=== PATIENT | male | born 1945 | race Caucasian/White ===

== ENCOUNTER 2017-01-21 15:23 | Emergency (ER) | payer MEDICARE ==
--- NOTE | 2017-01-21 17:30 | ER Document Report ---
ED Medical Screen (RME) - General Chief Complaint: Testicular Pain Stated Complaint: RASH/TESTICLE PAIN Time Seen by Provider: 01/21/17 17:23 Notes: This is a 71-year-old male who presents for perineal pain. States that he has pain at the base of his penis and around to the right side of his scrotum and then to his rectum. He also has left hip discomfort. The symptoms have been going on for several days. No dysuria. No fevers or chills. He also is concerned about a recurrent rash that he has had off and on for several years which is pruritic and located on his right flank and upper back. I have greeted and performed a rapid initial assessment of this patient. A comprehensive ED assessment and evaluation of the patient, analysis of test results and completion of the medical decision making process will be conducted by additional ED providers. TRAVEL OUTSIDE OF THE [place] IN LAST 30 DAYS: No - Related Data Allergies/Adverse Reactions: amoxicillin Allergy (Verified 01/21/17 16:23) Past Medical History Renal/ Medical History: Denies: Hx Peritoneal Dialysis Physical Exam - Vital signs Vitals: Temp Pulse Resp BP Pulse Ox 97.6 F 70 16 156/79 H 98 01/21/17 15:33 01/21/17 15:33 01/21/17 15:33 01/21/17 15:33 01/21/17 15:33 Course - Vital Signs Vital signs: Temp Pulse Resp BP Pulse Ox 97.6 F 70 16 156/79 H 98 01/21/17 15:33 01/21/17 15:33 01/21/17 15:33 01/21/17 15:33 01/21/17 15:33 - Laboratory Result Diagrams: 01/21/17 18:08 01/21/17 18:08 Laboratory results interpreted by me: 01/21/17 01/21/17 18:08 18:08 Hgb 13.0 L Total Protein 8.4 H
[2017-01-21 18:32] LABS: APPEARANCE,URINE CLEAR; BILIRUBIN,URINE NEGATIVE (NEGATIVE); GLUCOSE, URINE NEGATIVE (NEGATIVE); KETONES,URINE NEGATIVE (NEGATIVE); LEUKOCYTE ESTERASE,URINE NEGATIVE (NEGATIVE); NITRITE,URINE NEGATIVE (NEGATIVE); PROTEIN,URINE NEGATIVE (NEGATIVE); URINE SPECIFIC GRAVITY 1.006; UROBILINOGEN,URINE NEGATIVE mg/dL (<2.0)
[2017-01-21 18:36] LABS: ABSOLUTE EOSINOPHILS # (AUTO) 0.3 10^3/uL (0.0-0.6); ABSOLUTE MONOCYTES (AUTO) 0.4 10^3/uL (0.1-1.4); ABSOLUTE NEUT (AUTO) 3.3 10^3/uL (1.7-8.2); BASOPHILS % (AUTO) 0.7 % (0-2); EOSINOPHILS % (AUTO) 5.2 % (0-6); HEMATOCRIT 39.9 % (37.9-51.0); HGB HCT DIFFERENCE -0.9; LYMPHOCYTES % (AUTO) 19.9 % (13-45); MEAN CORPUSCULAR HEMOGLOBIN 27.7 pg (27.0-33.4); MEAN CORPUSCULAR HGB CONC 32.6 g/dL (32.0-36.0); MEAN CORPUSCULAR VOLUME 85 fl (80-97); MONOCYTES % (AUTO) 8.5 % (3-13); RED BLOOD COUNT 4.69 10^6/uL (4.35-5.55); RED CELL DISTRIBUTION WIDTH 13.5 % (11.5-14.0); SEGMENTED NEUTROPHILS % (AUTO) 65.7 % (42-78)
[2017-01-21 18:56] LABS: ALANINE AMINOTRANSFERASE 34 U/L (21-72); ALBUMIN 4.3 g/dL (3.5-5.0); ALKALINE PHOSPHATASE 68 U/L (38-126); ANION GAP 12 (5-19); ASPARTATE AMINO TRANSFERASE 33 U/L (17-59); BILIRUBIN,DIRECT 0.4 mg/dL (0.0-0.4); BILIRUBIN,TOTAL 0.7 mg/dL (0.2-1.3); BLOOD UREA NITROGEN 17 mg/dL (7-20); CALCIUM 9.7 mg/dL (8.4-10.2); CARBON DIOXIDE 26 mmol/L (22-30); CHLORIDE 105 mmol/L (98-107); GLUCOSE 99 mg/dL (75-110); POTASSIUM 4.5 mmol/L (3.6-5.0); SODIUM 143.4 mmol/L (137-145); TOTAL PROTEIN 8.4 g/dL (6.3-8.2)
--- NOTE | 2017-01-21 19:56 | RADIOLOGY REPORT (SQ) ---
EXAM DESCRIPTION: U/S SCROTUM W/DOPPLER COMPLETED DATE/TIME: 01/21/2017 7:48 pm REASON FOR STUDY: right testicular pain COMPARISON: None. TECHNIQUE: Static and realtime araya scale imaging of the scrotum and testes. Selected color Doppler and spectral images recorded to document blood flow. LIMITATIONS: None. FINDINGS: RIGHT: TESTICLE: Normal size. Normal echotexture. Normal blood flow. No mass. EPIDIDYMIS: Normal. HYDROCELE OR VARICOCELE: Hydrocele is identified with internal echogenicity suggesting internal debri s. HERNIA OR EXTRA-TESTICULAR MASS: No. OTHER: No other significant finding. LEFT: TESTICLE: Normal size. Normal echotexture. Normal blood flow. No mass. EPIDIDYMIS: Normal. HYDROCELE OR VARICOCELE: Hydrocele is identified with internal echogenicity suggesting internal debri s. HERNIA OR EXTRA-TESTICULAR MASS: No. OTHER: No other significant finding. IMPRESSION: Bilateral hydroceles as noted above. NO EVIDENCE OF TESTICULAR MASS OR TORSION. TECHNICAL DOCUMENTATION: JOB ID: [id number] [employer]- All Rights Reserved
[2017-01-21] MEDS ORDERED: LEVOFLOXACIN 750 MG TABLET PO ONE (21:46)
--- NOTE | 2017-01-21 21:47 | ER Document Report ---
ED General - General Chief Complaint: Testicular Pain Stated Complaint: RASH/TESTICLE PAIN Time Seen by Provider: 01/21/17 17:23 Notes: Patient is a 71-year-old male with past medical history of prostatic hypertrophy and hypertension who presents with 3 days of progressively worsening testicular pain. Describes as a dull, aching, throbbing pain to the bilateral testicles. Nothing improves or worsens his pain. He denies any history of similar symptoms in the past. He has not seen his primary care doctor regarding today's concerns. He denies any associated dysuria, discharge , vomiting or focal abdominal pain. Notes that the pain does sometimes radiate from his testicles into his rectum. TRAVEL OUTSIDE OF THE [place] IN LAST 30 DAYS: No - Related Data Allergies/Adverse Reactions: amoxicillin Allergy (Verified 01/21/17 16:23) Past Medical History - General Information source: Patient - Social History Smoking Status: Never Smoker Frequency of alcohol use: None Drug Abuse: None Lives with: Spouse/Significant other Family History: Reviewed & Not Pertinent Patient has suicidal ideation: No Patient has homicidal ideation: No Renal/ Medical History: Denies: Hx Peritoneal Dialysis Review of Systems - Review of Systems Notes: Constitutional: Negative for fever. HENT: Negative for sore throat. Eyes: Negative for visual changes. Cardiovascular: Negative for chest pain. Respiratory: Negative for shortness of breath. Gastrointestinal: Negative for abdominal pain, vomiting or diarrhea. Genitourinary: Positive for testicular pain Musculoskeletal: Negative for back pain. Skin: Negative for rash. Neurological: Negative for headaches, weakness or numbness. 10 point ROS negative except as marked above and in HPI. Physical Exam - Vital signs Vitals: Temp Pulse Resp BP Pulse Ox 97.6 F 70 16 156/79 H 98 01/21/17 15:33 01/21/17 15:33 01/21/17 15:33 01/21/17 15:33 01/21/17 15:33 Interpretation: Hypertensive Notes: PHYSICAL EXAMINATION: GENERAL: Well-appearing, well-nourished and in no acute distress. HEAD: Atraumatic, normocephalic. EYES: Pupils equal round and reactive to light, extraocular movements intact, sclera anicteric, conjunctiva are normal. ENT: nares patent, oropharynx clear without exudates. Moist mucous membranes. NECK: Normal range of motion, supple without lymphadenopathy LUNGS: Breath sounds clear to auscultation bilaterally and equal. No wheezes rales or rhonchi. HEART: Regular rate and rhythm without murmurs ABDOMEN: Soft, nontender, normoactive bowel sounds. No guarding, no rebound. No masses appreciated. : Mild edema to the bilateral testicles. Positive cremasteric reflex bilaterally. No focal epididymal tenderness. EXTREMITIES: Normal range of motion, no pitting or edema. No cyanosis. NEUROLOGICAL: No focal neurological deficits. Moves all extremities spontaneously and on command. PSYCH: Normal mood, normal affect. SKIN: Warm, Dry, normal turgor, no rashes or lesions noted. Course - Re-evaluation Re-evalutation: 01/21/17 21:42 Patient presents with 4 days of progressively worsening bilateral testicular pain. On exam he has visible bilateral hydroceles and this is confirmed on ultrasound. No evidence of testicular torsion on exam or ultrasound. Patient has had multiple recent straining bowel movements which may account for his acutely dilated hydroceles. I have encouraged him to continue taking his chronic pain management medications at home for this pain and to closely follow with urology for definitive management should his pain not improve. - Vital Signs Vital signs: Temp Pulse Resp BP Pulse Ox 97.8 F 65 20 148/80 H 100 01/21/17 21:56 01/21/17 21:56 01/21/17 21:56 01/21/17 21:56 01/21/17 21:56 - Laboratory Result Diagrams: 01/21/17 18:08 01/21/17 18:08 Laboratory results interpreted by me: 01/21/17 01/21/17 18:08 18:08 Hgb 13.0 L Total Protein 8.4 H - Diagnostic Test Radiology reviewed: Reports reviewed Discharge - Discharge Clinical Impression: Bilateral hydrocele Condition: Good Disposition: HOME, SELF-CARE Additional Instructions: Your pain is likely related to fluid that surrounds both of your testicles called a hydrocele. Please follow-up with urology for definitive management of this. You are also being empirically trialed on a course of antibiotics to treat a possible testicular infection. Please take as directed until finished. Return if you have worsening of your pain clinic develop a fever greater than 101F, you have persistent vomiting, or any other symptoms that are worrisome to you. Prescriptions: Levofloxacin 750 mg PO DAILY #10 tablet Referrals: ANA VALADEZ MD [ACTIVE STAFF] - Follow up as needed
[2017-01-21 21:58] VITALS: BP 148/80
== END 2017-01-21 21:56 | disposition home or self-care (01) ==
LOC: ER 15:23
DX: N43.3 Hydrocele, unspecified (principal); I10 Essential (primary) hypertension; G89.29 Other chronic pain; Z79.899 Other long term (current) drug therapy; Z88.0 Allergy status to penicillin
CPT/HCPCS: 99284; 36415; 85025; 80053; 81001; 76870; 93976; A9270

== ENCOUNTER 2017-08-14 10:52 | Emergency (ER) | payer MEDICARE ==
[2017-08-14] MEDS ORDERED: BENZONATATE 100 MG CAPSULE PO ONE (11:30)
[2017-08-14] MEDS ORDERED: ASPIRIN 81 MG TABLET, CHEWABLE PO ONE (11:30)
--- NOTE | 2017-08-14 11:43 | ER Document Report ---
ED Medical Screen (RME) - General Mode of Arrival: Ambulatory Information source: Patient TRAVEL OUTSIDE OF THE [place] IN LAST 30 DAYS: No <LG SU - Last Filed: 08/14/17 12:07> <JOEL TAYLOR - Last Filed: 08/14/17 15:19> - General Chief Complaint: Chest Pain Stated Complaint: LEFT SIDE PAIN Time Seen by Provider: 08/14/17 11:24 Notes: Patient is a 71 year old male with a history of arthritis presents to the emergency department complaining of left chest pain. Patient states that he had a respiratory infection 2 weeks ago and was given treatment but it did not help his symptoms so he was seen again 5 days ago and was given steroids. Patient states his respiratory symptoms are still persistent. Patient also complains of SOB. Patient denies any fevers. I have greeted and performed a rapid initial assessment of this patient. A comprehensive ED assessment and evaluation of the patient, analysis of test results and completion of the medical decision making process will be conducted by additional ED providers. (LG SU) - Related Data Allergies/Adverse Reactions: amoxicillin Allergy (Verified 08/14/17 10:54) Past Medical History - Past Medical History Cardiac Medical History: Reports: Hx Hypertension Renal/ Medical History: Denies: Hx Peritoneal Dialysis - Immunizations Hx Diphtheria, Pertussis, Tetanus Vaccination: Yes <LG SU - Last Filed: 08/14/17 12:07> Physical Exam <LG SU - Last Filed: 08/14/17 12:07> <JOEL TAYLOR - Last Filed: 08/14/17 15:19> - Vital signs Vitals: Temp Pulse Resp BP Pulse Ox 97.8 F 63 18 160/80 H 98 08/14/17 10:57 08/14/17 10:57 08/14/17 10:57 08/14/17 10:57 08/14/17 10:57 - Notes Notes: GENERAL: Alert, interacts well. No acute distress. LUNGS: Tender to palpation to the mid axillary line, left side approximately rib 6. Dry cough, expiratory wheezing with cough. No rales or rhonchi. Shortness of breath when sitting. No respiratory distress. HEART: Regular rate and rhythm. No murmurs, gallops, or rubs. ABDOMEN: Soft, non-tender. Non-distended. Bowel sounds present in all 4 quadrants. (LG SU) Course - Laboratory Result Diagrams: 08/14/17 12:11 08/14/17 12:11 <JOEL TAYLOR - Last Filed: 08/14/17 15:19> - Vital Signs Vital signs: Temp Pulse Resp BP Pulse Ox 97.8 F 63 14 148/94 H 95 08/14/17 10:57 08/14/17 10:57 08/14/17 13:46 08/14/17 13:46 08/14/17 13:46 - Laboratory Laboratory results interpreted by me: 08/14/17 08/14/17 08/14/17 12:11 12:11 12:11 RBC 3.95 L Hgb 11.2 L Hct 33.2 L Seg Neutrophils % 83.2 H Lymphocytes % 11.1 L D-Dimer 3.46 H BUN 26 H Creatine Kinase 37 L Total Protein 9.1 H Scribe Documentation - Scribe Written by Reese:: Reese Carrington, 08/14/2017 12:09 acting as scribe for :: Marlyn <LG SU - Last Filed: 08/14/17 12:07>
--- NOTE | 2017-08-14 11:55 | RADIOLOGY REPORT (SQ) ---
EXAM DESCRIPTION: CHEST PA/LAT COMPLETED DATE/TIME: 08/14/2017 11:44 am REASON FOR STUDY: coughed until sudden pain, r/o PTX vs rib fz COMPARISON: None. EXAM PARAMETERS: NUMBER OF VIEWS: two views TECHNIQUE: Digital Frontal and Lateral radiographic views of the chest acquired. RADIATION DOSE: NA LIMITATIONS: none FINDINGS: LUNGS AND PLEURA: No opacities, masses or pneumothorax. No pleural effusion. MEDIASTINUM AND HILAR STRUCTURES: No masses or contour abnormalities. HEART AND VASCULAR STRUCTURES: Heart normal size. No evidence for failure. BONES: Question fracture left lateral 4th rib. HARDWARE: None in the chest. OTHER: No other significant finding. IMPRESSION: Question left lateral 4th rib fracture. No focal infiltrates. No pleural effusion or pneumothorax TECHNICAL DOCUMENTATION: JOB ID: [id number] [employer]- All Rights Reserved
[2017-08-14 12:35] LABS: ABSOLUTE LYMPHOCYTES (AUTO) 0.9 10^3/uL (0.5-4.7); ABSOLUTE MONOCYTES (AUTO) 0.4 10^3/uL (0.1-1.4); ABSOLUTE NEUT (AUTO) 6.8 10^3/uL (1.7-8.2); BASOPHILS % (AUTO) 0.4 % (0-2); HEMATOCRIT 33.2 % (37.9-51.0); HEMOGLOBIN 11.2 g/dL (13.5-17.0); HGB HCT DIFFERENCE 0.4; LYMPHOCYTES % (AUTO) 11.1 % (13-45); MEAN CORPUSCULAR HEMOGLOBIN 28.3 pg (27.0-33.4); MEAN CORPUSCULAR HGB CONC 33.7 g/dL (32.0-36.0); MEAN CORPUSCULAR VOLUME 84 fl (80-97); MONOCYTES % (AUTO) 5.3 % (3-13); RED BLOOD COUNT 3.95 10^6/uL (4.35-5.55); RED CELL DISTRIBUTION WIDTH 13.8 % (11.5-14.0); SEGMENTED NEUTROPHILS % (AUTO) 83.2 % (42-78); WHITE BLOOD COUNT 8.2 10^3/uL (4.0-10.5)
[2017-08-14 12:56] LABS: ALANINE AMINOTRANSFERASE 41 U/L (21-72); ALKALINE PHOSPHATASE 92 U/L (38-126); ANION GAP 14 (5-19); ASPARTATE AMINO TRANSFERASE 43 U/L (17-59); BILIRUBIN,DIRECT 0.3 mg/dL (0.0-0.4); BILIRUBIN,TOTAL 0.3 mg/dL (0.2-1.3); BLOOD UREA NITROGEN 26 mg/dL (7-20); CALCIUM 10.1 mg/dL (8.4-10.2); CARBON DIOXIDE 22 mmol/L (22-30); CHLORIDE 105 mmol/L (98-107); CREATINE KINASE 37 U/L (55-170); CREATININE RESULT 1.13 mg/dL (0.52-1.25); GLUCOSE 106 mg/dL (75-110); POTASSIUM 4.1 mmol/L (3.6-5.0); SODIUM 141.2 mmol/L (137-145); TOTAL PROTEIN 9.1 g/dL (6.3-8.2)
--- NOTE | 2017-08-14 12:56 | EKG REPORT ---
SEVERITY:- BORDERLINE ECG - SINUS RHYTHM EARLY TRANSITION : Confirmed by: Refugio Pugh MD 14-Aug-2017 12:55:27
[2017-08-14 13:07] LABS: CREATINE KINASE MB 0.73 ng/mL (<4.55); TROPONIN I 0.026 ng/mL
[2017-08-14] MEDS ORDERED: MAGNESIUM SULFATE/D5W 1 GM/100 ML RTUPB IV ONE (13:28)
[2017-08-14] MEDS ORDERED: IPRATROPIUM/ALBUTEROL 0.5-2.5 MG/3 ML AMPUL NEB ONE (13:28)
[2017-08-14] MEDS ORDERED: NORMAL SALINE 1000 ML 1,000 ML IV ONE (13:39)
--- NOTE | 2017-08-14 14:57 | RADIOLOGY REPORT (SQ) ---
EXAM DESCRIPTION: CTA CHEST COMPLETED DATE/TIME: 08/14/2017 2:21 pm REASON FOR STUDY: elevated ddimer sob eval rib fx COMPARISON: None. TECHNIQUE: CT scan of the chest performed using helical scanning technique with dynamic intravenous contrast injection. Images reviewed with lung, soft tissue and bone windows. Reconstructed coronal and sagittal MPR images reviewed. Additional 3 dimensional post-processing performed to develop Maximal Intensity Projection images (GA P). All images stored on PACS. All CT scanners at this facility use dose modulation, iterative reconstruction, and/or weight based d osing when appropriate to reduce radiation dose to as low as reasonably achievable (ALARA). [facility]: Dose Right [facility]: CareDose [facility]: Dose Right [facility]: Teradose 4D [facility]: Garmentory CONTRAST TYPE AND DOSE: contrast/concentration: Isovue 370.00 mg/ml; Total Contrast Delivered: 77.0 ml; Total Saline Delivered: 81.0 ml Contrast bolus optimized for the pulmonary arteries. Not diagnostic for the aorta. RENAL FUNCTION: Creatinine 1.1 RADIATION DOSE: CT Rad equipment meets quality standard of care and radiation dose reduction techniq ues were employed. CTDIvol: 16.5 - 18.3 mGy. DLP: 756 mGy-cm. . LIMITATIONS: None. FINDINGS: LUNGS AND PLEURA: No masses, infiltrates, pneumothorax. No pleural effusions, calcificati ons. AORTA AND GREAT VESSELS: No aneurysm. Contrast bolus not optimized for the aorta. HEART: No pericardial effusion. No significant coronary artery calcifications. PULMONARY ARTERIES: No emboli visualized in the main pulmonary arteries or the segmental branches. HILAR AND MEDIASTINAL STRUCTURES: No identified masses or abnormal nodes. HARDWARE: None in the chest. UPPER ABDOMEN: No significant findings. Limited exam. THYROID AND OTHER SOFT TISSUES: No masses. No adenopathy. BONES: There are multiple lytic lesions throughout the ribs, scapula 8, sternum, clavicles, and thora cic spine. Findings are worrisome for myeloma or metastatic disease. Heavy is burden of disease is at the T6 level, with destruction of the posterior bony cortex is T6, best shown on axial image 54. There is also heavy involvement of T10, with mild upper endplate less than 10% compression. The left half of the L1 vertebral body is near completely replaced with tumor 3D MIPS: Confirm above findings. OTHER: This result was discussed with Dr. Cheo IMPRESSION: No CT angio evidence of acute pulmonary emboli. Extensive lytic lesions throughout the visualized skeleton with heavy burden of disease and several t horacic vertebral bodies. Findings are worrisome for myeloma COMMENT: Quality ID # [id number]: Final reports with documentation of one or more dose reduction techniques (e.g., Automated exposure control, adjustment of the mA and/or kV according to patient size, use of iterative reconstruction technique) TECHNICAL DOCUMENTATION: JOB ID: [id number] [employer]- All Rights Reserved
[2017-08-14] MEDS ORDERED: LEVOFLOXACIN 500 MG TABLET PO ONE (15:44)
[2017-08-14] MEDS ORDERED: KETOROLAC TROMETHAMINE INJ/PF 30 MG/1 ML SDV IV ONE (15:48)
--- NOTE | 2017-08-14 15:53 | ER Document Report ---
ED General - General Chief Complaint: Chest Pain Stated Complaint: LEFT SIDE PAIN Time Seen by Provider: 08/14/17 11:24 Mode of Arrival: Ambulatory TRAVEL OUTSIDE OF THE [place] IN LAST 30 DAYS: No - HPI Patient complains to provider of: Left lateral chest pain cough Notes: Patient coming in for diffuse along with left upper lateral chest pain started acutely today after coughing episode. Patient states currently that has been on antibiotics doxycycline went and saw his physician is that his cough and sputum production did not improve placed on steroids. Patient states still feeling unwell. Patient denies any recent travel states he recently had a negative stress test approximately 6 months ago I was a treadmill stress test. Patient states just before that appointment 1 month his PCP today chemical stress test. Patient otherwise denies any smoking patient states he still having productive green sputum. Patient upon my evaluation resting looks mildly uncomfortable otherwise vital signs are stable. - Related Data Allergies/Adverse Reactions: amoxicillin Allergy (Verified 08/14/17 10:54) Past Medical History - General Information source: Patient - Social History Smoking Status: Never Smoker Chew tobacco use (# tins/day): No Frequency of alcohol use: None Drug Abuse: None Family History: Reviewed & Not Pertinent Patient has suicidal ideation: No Patient has homicidal ideation: No - Past Medical History Cardiac Medical History: Reports: Hx Hypertension Renal/ Medical History: Denies: Hx Peritoneal Dialysis - Immunizations Hx Diphtheria, Pertussis, Tetanus Vaccination: Yes Review of Systems - Review of Systems Constitutional: No symptoms reported EENT: No symptoms reported Cardiovascular: Chest pain Respiratory: No symptoms reported Gastrointestinal: No symptoms reported Genitourinary: No symptoms reported Male Genitourinary: No symptoms reported Musculoskeletal: No symptoms reported Skin: No symptoms reported Hematologic/Lymphatic: No symptoms reported Neurological/Psychological: No symptoms reported -: Yes All other systems reviewed and negative Physical Exam - Vital signs Vitals: Temp Pulse Resp BP Pulse Ox 97.8 F 63 18 160/80 H 98 08/14/17 10:57 08/14/17 10:57 08/14/17 10:57 08/14/17 10:57 08/14/17 10:57 Interpretation: Normal - General General appearance: Appears well, Alert - HEENT Head: Normocephalic, Atraumatic Eyes: Normal Pupils: PERRL - Respiratory Respiratory status: No respiratory distress Chest status: Tender - Tenderness to the left lateral chest underneath the armpit. Breath sounds: Normal Chest palpation: Normal - Cardiovascular Rhythm: Regular Heart sounds: Normal auscultation Murmur: No - Abdominal Inspection: Normal Distension: No distension Bowel sounds: Normal Tenderness: Nontender Organomegaly: No organomegaly - Back Back: Normal, Nontender - Extremities General upper extremity: Normal inspection, Nontender, Normal color, Normal ROM , Normal temperature General lower extremity: Normal inspection, Nontender, Normal color, Normal ROM , Normal temperature, Normal weight bearing. No: Lexis's sign - Neurological Neuro grossly intact: Yes Cognition: Normal Orientation: AAOx4 Addison Coma Scale Eye Opening: Spontaneous Nikkie Coma Scale Verbal: Oriented Addison Coma Scale Motor: Obeys Commands Nikkie Coma Scale Total: 15 Speech: Normal Motor strength normal: LUE, RUE, LLE, RLE Sensory: Normal - Psychological Associated symptoms: Normal affect, Normal mood - Skin Skin Temperature: Warm Skin Moisture: Dry Skin Color: Normal Course - Re-evaluation Re-evalutation: 08/14/17 17:42 Patient had elevated d-dimer. Patient underwent a CT scan due to the elevated d -dimer showing multiple lytic lesions concerning for upper rib fracture. I did discuss with our oncologist call Dr. morelia huitron recommends close follow-up. Patient currently is already on hydrocodone however still is in pain. Will increased patient to oxycodone patient was instructed not to take any further hydrocodone. Patient states understanding. Patient still has productive sputum will treat with Levaquin patient is to continue steroids also continue bronchodilators. Patient was grateful for his care discharged home. - Vital Signs Vital signs: Temp Pulse Resp BP Pulse Ox 97.8 F 63 14 150/69 H 94 08/14/17 10:57 08/14/17 10:57 08/14/17 17:00 08/14/17 16:31 08/14/17 17:00 - Laboratory Result Diagrams: 08/14/17 12:11 08/14/17 12:11 Laboratory results interpreted by me: 08/14/17 08/14/17 08/14/17 12:11 12:11 12:11 RBC 3.95 L Hgb 11.2 L Hct 33.2 L Seg Neutrophils % 83.2 H Lymphocytes % 11.1 L D-Dimer 3.46 H BUN 26 H Creatine Kinase 37 L Total Protein 9.1 H Discharge - Discharge Clinical Impression: Possible multiple myeloma, Productive cough Left rib fracture Qualifiers: Encounter type: initial encounter Rib fracture type: single rib Fracture type: closed Qualified Code(s): S22.32XA - Fracture of one rib, left side, initial encounter for closed fracture Condition: Stable Disposition: HOME, SELF-CARE Instructions: Rib Injuries and Fractures ([facility]) Additional Instructions: Laboratory studies today did not show significant pathology. Your chest x-ray and CAT scan showed a left rib fracture with a CAT scan showing multiple bony lytic lesions that are concerning for underlying cancer. Because of your continued coughing and productive sputum I will patient on antibiotic called Bree concern for possible underlying developing pneumonia or bronchitis. Please continue your antibiotics. Please use the inhaler that we gave you here in ER 2 puffs every 4 hours. I will increase her pain medication from hydrocodone to oxycodone. He may take 1 or 2 tablets every 6 hours for pain control. Please do not mix your Oxycodone and hydrocodone together. I discussed your case with Dr. Garcia of her oncologist please call their office at your earliest convenience to set up a follow-up appointment. I would recommend using honey to help control your cough or any over-the- counter cough drops. Return to the ER for any concerning issues. Prescriptions: Docusate Sodium [Colace] 100 mg PO DAILY #30 capsule Levofloxacin [Levaquin 500 mg Tablet] 500 mg PO DAILY #9 tablet Oxycodone HCl 5 - 10 mg PO Q6 #60 tablet Referrals: MARIE GARCIA MD [ACTIVE STAFF] - Follow up as needed (call as soon as you can to set up and appointment)
[2017-08-14] MEDS ORDERED: ALBUTEROL SULFATE HFA (90 MCG/PUFF) 8 GM MDI (1 MDI/ER DISP) IH ONE (15:57)
[2017-08-14] MEDS ORDERED: LIDOCAINE 5% (700 MG) TRANSDERMAL ADH..PATCH TP ONE (15:57)
[2017-08-14 17:30] VITALS: BP 150/69
== END 2017-08-14 17:30 | disposition home or self-care (01) ==
LOC: ER 10:52
DX: S22.32XA Fracture of one rib, left side, initial encounter for closed fracture (principal); R05 Cough; R07.9 Chest pain, unspecified; X58.XXXA Exposure to other specified factors, initial encounter
CPT/HCPCS: 93005; 94640; 99285; 96375; 96365; 36415; 82553; 82550; 85025; 80053; 84484; 85379; 71020; 71275; 93010; A9270 ×4; J1885; J3475; J7030; J3490; J7620

== ENCOUNTER → 2017-09-14 | Outpatient (CLI) | payer MEDICARE ==
--- NOTE | 2017-09-14 18:06 | RADIOLOGY REPORT (SQ) ---
EXAM DESCRIPTION: BONE SURVEY COMPLETE COMPLETED DATE/TIME: 09/14/2017 3:42 pm REASON FOR STUDY: MYELOMA C90.00 MULTIPLE MYELOMA NOT HAVING ACHIEVED REMISSION COMPARISON: CT angio chest 08/14/2017 Two-view chest 08/14/2017 TECHNIQUE: Images of the axial and proximal appendicular skeleton are obtained, along with lateral s kull and frontal chest films. LIMITATIONS: None. FINDINGS: AP CHEST: Too numerous to count lytic lesions are seen throughout the sternum ribs and cla vicles. No focal infiltrates. No pleural effusion. No pneumothorax. No pulmonary nodules. LATERAL SKULL: Too numerous to count lytic lesions in the calvarium AP BOTH HUMERI: Multiple tiny lytic lesions throughout the right and left humerus TWO-VIEW LUMBAR SPINE: Multiple lytic lesions throughout the lumbar spine, with heavy burden of disea se in the L1 vertebral body. TWO-VIEW THORACIC SPINE: Heavy burden of disease throughout the thoracic spine. Since the prior CT c hest, 08/14/2017, patient has developed a T8 or T9 compression deformity with about 25% loss of heigh t. Consider noncontrast MRI for followup, to evaluate for epidural tumor at this level. TWO VIEW CERVICAL SPINE: tiny lytic lesions in the thoracic spine seen on ct chest 08/14/2017 are di fficult to identify on plain film AP PELVIS: Multiple small lytic lesions throughout the bony pelvis AP BOTH FEMURS: Multiple small lytic lesions throughout the bilateral femurs OTHER: No other significant finding. IMPRESSION: Diffuse involvement with myeloma. Consider MRI of the thoracic and lumbar spine to eval uate for epidural tumor, particularly at the T8 or T9 level, and the L1 level TECHNICAL DOCUMENTATION: JOB ID: [id number]- All Rights Reserved
== END ==
LOC: RAD 15:07
PROVIDERS: ATTEND Internal Medicine Hematology & Oncology
DX: C90.00 Multiple myeloma not having achieved remission (principal)
CPT/HCPCS: 77075

== ENCOUNTER 2017-12-04 14:36 | Inpatient (IN) | payer MEDICARE ==
[2017-12-04] MEDS ORDERED: HYDROMORPHONE HCL INJ/PF 2 MG/ML AMPULE IM ONE (15:08)
[2017-12-04] MEDS ORDERED: ONDANSETRON 4 MG TAB.RAPDIS PO ONE (15:08)
--- NOTE | 2017-12-04 15:08 | ER Document Report ---
ED Medical Screen (RME) - General TRAVEL OUTSIDE OF THE [place] IN LAST 30 DAYS: No <MERRICK DELACRUZ - Last Filed: 12/04/17 15:19> <TARAN KLINE V - Last Filed: 12/04/17 17:52> - General Chief Complaint: Abdominal Pain >50 Stated Complaint: BACK AND ABDOMINAL PAIN Time Seen by Provider: 12/04/17 15:05 Notes: 72-year-old male patient multiple myeloma receiving weekly radiation therapy treatment. Last bowel movement was Thursday evening he takes MiraLAX. He has been having pain in his lower abdomen the past few days which wraps around to the back. He was seen at [facility] 2 days ago by history and diagnosed with GERD and put on Protonix. He did have vomiting once on Thursday and wants on Thursday. At this time he does not have nausea he does have some pelvic discomfort occasionally has pains up into his prostate he thinks. He did have a CBC at his oncologist's office this morning showing a hemoglobin of 9.9 I have greeted and performed a rapid initial assessment of this patient. A comprehensive ED assessment and evaluation of the patient, analysis of test results and completion of the medical decision making process will be conducted by additional ED providers. (MERRICK DELACRUZ) Patient has history of multiple myeloma recently diagnosed. Patient is here for evaluation of nausea, vomiting, dizziness, generalized fatigue and dehydration. Patient also reported poor urine output as well as no stool output. Patient denies any fevers, chills, nausea vomiting. Patient is here for evaluation from oncology clinic. (TARAN KLINE V) - Related Data Allergies/Adverse Reactions: amoxicillin Allergy (Verified 12/04/17 14:43) Past Medical History - Past Medical History Cardiac Medical History: Reports: Hx Hypertension Renal/ Medical History: Denies: Hx Peritoneal Dialysis - Immunizations Hx Diphtheria, Pertussis, Tetanus Vaccination: Yes <MERRICK DELACRUZ - Last Filed: 12/04/17 15:19> Review of Systems <MERRICK DELACRUZ - Last Filed: 12/04/17 15:19> <TARAN KLINE V - Last Filed: 12/04/17 17:52> - Review of Systems Notes: REVIEW OF SYSTEMS: CONSTITUTIONAL: -fevers, -chills, generalized fatigue EENT: -eye pain, -difficulty swallowing, -nasal congestion CARDIOVASCULAR: -chest pain, -syncope. RESPIRATORY: -cough, -SOB GASTROINTESTINAL: + Nausea, + vomiting, + GERD + constipation GENITOURINARY: -dysuria, -hematuria MUSCULOSKELETAL: -back pain, -neck pain SKIN: -rash or skin lesions. HEMATOLOGIC: -easy bruising or bleeding. LYMPHATIC: -swollen, enlarged glands. NEUROLOGICAL: -altered mental status or loss of consciousness, -headache, - neurologic symptoms PSYCHIATRIC: -anxiety, -depression. ALL OTHER SYSTEMS REVIEWED AND NEGATIVE. (TARAN KLINE V) Physical Exam <MERRICK DELACRUZ - Last Filed: 12/04/17 15:19> <TARAN KLINE V - Last Filed: 12/04/17 17:52> - Vital signs Vitals: Temp Pulse Resp BP Pulse Ox 97.4 F 70 16 97/60 L 100 12/04/17 14:54 12/04/17 14:54 12/04/17 14:54 12/04/17 14:54 12/04/17 14:54 - Notes Notes: Reviewed vital signs and nursing note as charted by RN. CONSTITUTIONAL: Alert and oriented and responds appropriately to questions HEAD: Normocephalic; atraumatic EYES: PERRL; Conjunctivae clear, sclerae non-icteric ENT: normal nose NECK: Supple without meningismus; non-tender; no cervical lymphadenopathy, no masses CARD: Regular rate and rhythm; no murmurs, no clicks, no rubs, no gallops; symmetric distal pulses RESP: Normal chest excursion without splinting or tachypnea; breath sounds clear and equal bilaterally ABD/GI: Normal bowel sounds; non-distended; soft, right lower quadrant tenderness to palpation Rectal exam: Normal external genitalia, intra-rectal examination without any obvious mass, no impaction, stool is brown, heme-negative BACK: The back appears normal and is non-tender to palpation EXT: Normal ROM in all joints; non-tender to palpation; no cyanosis, no effusions, no edema SKIN: Pale NEURO: Cranial nerves 3-12 intact. Motor strength 5/5 bilaterally. Sensation intact to touch bilaterally. No pronator drift. Finger to nose intact bilaterally PSYCH: Flat affect (TARAN KLINE V) Course <MERRICK DELACRUZ - Last Filed: 12/04/17 15:19> - Laboratory Result Diagrams: 12/04/17 15:27 12/04/17 15:27 <TARAN KLINE V - Last Filed: 12/04/17 17:52> - Re-evaluation Re-evalutation: 12/04/17 16:56 72-year-old gentleman with multiple myeloma presented today for evaluation of lightheadedness, fatigue, presyncope Patient is actively undergoing chemotherapy for multiple myeloma Differential diagnoses includes dehydration, acute kidney failure, rhabdomyolysis, intra-abdominal infection, small bowel obstruction, kidney stone We will obtain basic lab work including CBC, CMP, urinalysis Chest x-ray CT scan of abdomen pelvis We will start patient IV fluids, will give Dilaudid for pain Reassess patient 12/04/17 17:48 Patient has acute kidney failure secondary to dehydration with mild acidosis We will continue with IV hydration CT scan did not reveal any acute intra-abdominal pathology other than findings of his skeletal infiltration with multiple myeloma We will admit patient to hospitalist for further management, discussed the case with hospitalist on-call, Dr. White, agree with admission (TARAN KLINE V) - Vital Signs Vital signs: Temp Pulse Resp BP Pulse Ox 97.4 F 70 16 97/60 L 100 12/04/17 14:54 12/04/17 14:54 12/04/17 14:54 12/04/17 14:54 12/04/17 14:54 - Laboratory Laboratory results interpreted by me: 12/04/17 12/04/17 15:27 15:27 RBC 3.63 L Hgb 10.1 L Hct 30.2 L RDW 15.1 H Seg Neutrophils % 83.6 H Lymphocytes % 8.3 L Carbon Dioxide 18 L BUN 33 H Creatinine 2.75 H Est GFR ( Amer) 28 L Est GFR (Non-Af Amer) 23 L Magnesium 3.0 H Critical Care Note <MERRICK DELACRUZ - Last Filed: 12/04/17 15:19> <TARAN KLINE V - Last Filed: 12/04/17 17:52> - Critical Care Note Comments: Critical Care Time: 35 minutes Critical care provider statement: Critical care time was exclusive of: Separately billable procedures and treating other patients and teaching time Critical care was time spent personally by me on the following activities: Blood draw for specimens, development of treatment plan with patient or surrogate, evaluation of patient's response to treatment, examination of patient , obtaining history from patient or surrogate, ordering and performing treatments and interventions, ordering and review of laboratory studies, ordering and review of radiographic studies, pulse oximetry, re-evaluation of patient's condition and review of old charts I assumed direction of critical care for this patient from another provider in my specialty: no (TARAN KLINE V) Doctor's Discharge <MERRICK DELACRUZ - Last Filed: 12/04/17 15:19> <TARAN KLINE V - Last Filed: 12/04/17 17:52> - Discharge Clinical Impression: Acute kidney failure, Metabolic acidosis, Dehydration, Multiple myeloma Condition: Stable Disposition: ADMITTED INPATIENT Discharge <MERRICK DELACRUZ - Last Filed: 12/04/17 15:19> - Discharge Admitting Provider: Hospitalist Unit Admitted: Medical Floor <TARAN KLINE V - Last Filed: 12/04/17 17:52> - Discharge Clinical Impression: Acute kidney failure, Metabolic acidosis, Dehydration, Multiple myeloma Condition: Stable Disposition: ADMITTED INPATIENT
[2017-12-04 16:06] LABS: ABSOLUTE EOSINOPHILS # (AUTO) 0.1 10^3/uL (0.0-0.6); ABSOLUTE LYMPHOCYTES (AUTO) 0.5 10^3/uL (0.5-4.7); ABSOLUTE MONOCYTES (AUTO) 0.4 10^3/uL (0.1-1.4); ABSOLUTE NEUT (AUTO) 5.3 10^3/uL (1.7-8.2); BASOPHILS % (AUTO) 0.4 % (0-2); EOSINOPHILS % (AUTO) 1.2 % (0-6); HEMATOCRIT 30.2 % (37.9-51.0); HEMOGLOBIN 10.1 g/dL (13.5-17.0); LYMPHOCYTES % (AUTO) 8.3 % (13-45); MEAN CORPUSCULAR HEMOGLOBIN 27.8 pg (27.0-33.4); MEAN CORPUSCULAR HGB CONC 33.4 g/dL (32.0-36.0); MEAN CORPUSCULAR VOLUME 83 fl (80-97); MONOCYTES % (AUTO) 6.5 % (3-13); PLATELET COUNT 156 10^3/uL (150-450); RED BLOOD COUNT 3.63 10^6/uL (4.35-5.55); RED CELL DISTRIBUTION WIDTH 15.1 % (11.5-14.0); SEGMENTED NEUTROPHILS % (AUTO) 83.6 % (42-78); TOTAL CELLS COUNTED % (AUTO) 100 %; WHITE BLOOD COUNT 6.3 10^3/uL (4.0-10.5)
--- NOTE | 2017-12-04 16:08 | RADIOLOGY REPORT (SQ) ---
EXAM DESCRIPTION: KUB/ABDOMEN (SINGLE VIEW) COMPLETED DATE/TIME: 12/04/2017 3:52 pm REASON FOR STUDY: constipation, lower abd pain COMPARISON: None. NUMBER OF VIEWS: One view. TECHNIQUE: Supine radiographic image of the abdomen acquired. LIMITATIONS: None. FINDINGS: BOWEL GAS PATTERN: Normal bowel gas pattern. No dilated loops. CALCIFICATIONS: No suspicious calcifications. SOFT TISSUES: No gross mass or suggestion of organomegaly. HARDWARE: None in the abdomen. BONES: No acute fracture. Lumbar scoliosis convex to the left is identified. OTHER: No other significant finding. IMPRESSION: NO RADIOGRAPHIC EVIDENCE FOR ACUTE ABDOMINAL DISEASE. TECHNICAL DOCUMENTATION: JOB ID: [id number] [employer]- All Rights Reserved Reading location - IP/workstation name: [email or web address]
[2017-12-04 16:30] LABS: ALANINE AMINOTRANSFERASE 31 U/L (21-72); ALBUMIN 4.2 g/dL (3.5-5.0); ALKALINE PHOSPHATASE 84 U/L (38-126); ANION GAP 14 (5-19); ASPARTATE AMINO TRANSFERASE 31 U/L (17-59); BILIRUBIN,DIRECT 0.4 mg/dL (0.0-0.4); BILIRUBIN,TOTAL 0.6 mg/dL (0.2-1.3); BLOOD UREA NITROGEN 33 mg/dL (7-20); CALCIUM 8.8 mg/dL (8.4-10.2); CARBON DIOXIDE 18 mmol/L (22-30); CHLORIDE 106 mmol/L (98-107); GLUCOSE 99 mg/dL (75-110); POTASSIUM 4.6 mmol/L (3.6-5.0); SODIUM 137.8 mmol/L (137-145); TOTAL PROTEIN 6.8 g/dL (6.3-8.2)
--- NOTE | 2017-12-04 17:26 | RADIOLOGY REPORT (SQ) ---
EXAM DESCRIPTION: CT ABD/PELVIS NO ORAL OR IV COMPLETED DATE/TIME: 12/04/2017 4:59 pm REASON FOR STUDY: kidney stone COMPARISON: Correlation made to bone survey from 09/14/2017 and CTA chest from 08/14/2017. TECHNIQUE: CT scan of the abdomen and pelvis performed without intravenous or oral contrast. Images reviewed with lung, soft tissue, and bone windows. Reconstructed coronal and sagittal MPR images revi ewed. All images stored on PACS. All CT scanners at this facility use dose modulation, iterative reconstruction, and/or weight based d osing when appropriate to reduce radiation dose to as low as reasonably achievable (ALARA). [facility]: Dose Right [facility]: CareDose [facility]: Dose Right [facility]: Teradose 4D [facility]: Smart Rover Apps RADIATION DOSE: CT Rad equipment meets quality standard of care and radiation dose reduction techniq ues were employed. CTDIvol: 9.2 mGy. DLP: 481 mGy-cm.mGy. LIMITATIONS: None. FINDINGS: LOWER CHEST: No significant findings. No nodules or infiltrates. NON-CONTRASTED LIVER, SPLEEN, ADRENALS: Evaluation limited by lack of IV contrast. No identified sign ificant masses. PANCREAS: No masses. No peripancreatic inflammatory changes. GALLBLADDER: No identified stones by CT criteria. No inflammatory changes to suggest cholecystitis. RIGHT KIDNEY AND URETER: No suspicious masses. Assessment limited by lack of IV contrast. No signif icant calcifications. No hydronephrosis or hydroureter. LEFT KIDNEY AND URETER: No suspicious masses. Assessment limited by lack of IV contrast. Punctate n onobstructing calculus lower pole. No hydronephrosis or hydroureter. AORTA AND RETROPERITONEUM: Atherosclerotic calcifications. No aneurysm. No retroperitoneal masses or adenopathy. BOWEL AND PERITONEAL CAVITY: Diverticulosis. No obvious masses or inflammatory changes. No free flui d. APPENDIX: Normal. PELVIS, BLADDER, AND ABDOMINAL WALL:No abnormal masses. No free fluid. Bladder normal. BONES: Numerous lytic lesions seen throughout the visualized spine, sacrum, and pelvis and visualize right and left femur compatible with known history of multiple myeloma. Largest lesions now located within the left fidencio sacrum and left iliac bone. No pathologic fracture identified at this time. OTHER: No other significant finding. IMPRESSION: SINGLE PUNCTATE NONOBSTRUCTING CALCULUS WITHIN THE LOWER POLE LEFT KIDNEY WITHOUT LOWER URINARY TRACT STONES OR HYDRONEPHROSIS. NUMEROUS LYTIC LESIONS THROUGHOUT THE VISUALIZED APPENDICULAR AND AXIAL SKELETON DESCRIBED ABOVE C OMPATIBLE WITH KNOWN MULTIPLE MYELOMA. PATIENT IS AT HIGH RISK FOR PATHOLOGIC FRACTURES GIVEN LOCATI ON OF MANY OF THE LESIONS IN THE SACRUM, PELVIS, AND RIGHT AND LEFT FEMUR. NO ACUTE FRACTURES IDENTI FIED AT THIS TIME. COMMENT: Quality ID # [id number]: Final reports with documentation of one or more dose reduction techniques (e.g., Automated exposure control, adjustment of the mA and/or kV according to patient size, use of iterative reconstruction technique) TECHNICAL DOCUMENTATION: JOB ID: [id number] [employer]- All Rights Reserved Reading location - IP/workstation name: [email or web address]
[2017-12-04] MEDS ORDERED: ACETAMINOPHEN 325 MG TABLET PO PRN (17:33)
[2017-12-04] MEDS ORDERED: PROMETHAZINE HCL 25 MG TABLET PO PRN (17:33)
[2017-12-04] MEDS ORDERED: IPRATROPIUM/ALBUTEROL 0.5-2.5 MG/3 ML AMPUL NEB PRN (17:33)
[2017-12-04] MEDS ORDERED: DOPAMINE HCL/DEXTROSE 5%-WATER 800 MG/250 ML RTUINJ IV PRN (17:50)
[2017-12-04 18:28] LABS: APPEARANCE,URINE CLEAR; BILIRUBIN,URINE NEGATIVE (NEGATIVE); COLOR,URINE YELLOW; GLUCOSE, URINE NEGATIVE (NEGATIVE); KETONES,URINE NEGATIVE (NEGATIVE); LEUKOCYTE ESTERASE,URINE NEGATIVE (NEGATIVE); NITRITE,URINE NEGATIVE (NEGATIVE); PROTEIN,URINE NEGATIVE (NEGATIVE); URINE SPECIFIC GRAVITY 1.012; UROBILINOGEN,URINE NEGATIVE mg/dL (<2.0)
[2017-12-04 18:33] LABS: PHOSPHORUS 1.6 mg/dL (2.5-4.5)
[2017-12-04] MEDS: NORMAL SALINE 1000 ML 1,000 ML IV PRN ×2 (19:04→21:32)
[2017-12-04] MEDS: HEPARIN SOD (PORCINE) 5,000 UNIT/ML 1 ML SYRINGE SUBCUT SCH (21:42)
[2017-12-04] MEDS: DOCUSATE SODIUM 100 MG CAPSULE PO SCH (21:42)
[2017-12-04] MEDS ORDERED: CETIRIZINE 10 MG TABLET PO PRN (22:01)
[2017-12-04] MEDS: OXYCODONE HCL IR 5 MG TABLET PO PRN (22:49)
[2017-12-04] MEDS: NORMAL SALINE 1000 ML 1,000 ML IV SCH (23:25)
[2017-12-05] MEDS ORDERED: MORPHINE SULFATE IR 15 MG TABLET ONE (01:24)
[2017-12-05] MEDS: NORMAL SALINE 1000 ML 1,000 ML IV SCH ×2 (03:51→09:08)
[2017-12-05] MEDS: HEPARIN SOD (PORCINE) 5,000 UNIT/ML 1 ML SYRINGE SUBCUT SCH ×3 (05:47→21:57)
[2017-12-05] MEDS: OXYCODONE HCL IR 5 MG TABLET PO PRN ×2 (05:48→22:23)
[2017-12-05 05:54] LABS: ABSOLUTE EOSINOPHILS # (AUTO) 0.1 10^3/uL (0.0-0.6); ABSOLUTE LYMPHOCYTES (AUTO) 0.5 10^3/uL (0.5-4.7); ABSOLUTE MONOCYTES (AUTO) 0.7 10^3/uL (0.1-1.4); ABSOLUTE NEUT (AUTO) 4.5 10^3/uL (1.7-8.2); BASOPHILS % (AUTO) 0.3 % (0-2); EOSINOPHILS % (AUTO) 2.3 % (0-6); HEMATOCRIT 26.9 % (37.9-51.0); HEMOGLOBIN 9.2 g/dL (13.5-17.0); LYMPHOCYTES % (AUTO) 8.8 % (13-45); MEAN CORPUSCULAR HEMOGLOBIN 27.9 pg (27.0-33.4); MEAN CORPUSCULAR HGB CONC 34.3 g/dL (32.0-36.0); MEAN CORPUSCULAR VOLUME 81 fl (80-97); MONOCYTES % (AUTO) 11.8 % (3-13); PLATELET COUNT 134 10^3/uL (150-450); RED BLOOD COUNT 3.31 10^6/uL (4.35-5.55); RED CELL DISTRIBUTION WIDTH 14.7 % (11.5-14.0); SEGMENTED NEUTROPHILS % (AUTO) 76.8 % (42-78); TOTAL CELLS COUNTED % (AUTO) 100 %; WHITE BLOOD COUNT 5.9 10^3/uL (4.0-10.5)
--- NOTE | 2017-12-05 06:06 | PDOC H&P ---
History of Present Illness Admission Date/PCP: 12/04/17 18:07 Patient complains of: Anorexia History of Present Illness: BRIDGER RITCHIE is a 72 year old male with past medical history of BPH, multiple myeloma and subsequent opiate dependent pain. Patient presents with nausea and poor appetite for 5 days. He presents to his oncologist and subsequently referred to the emergency room for evaluation where he is found to have anemia and acute renal failure. Patient's former chemotherapy included lenalidomide, urinalysis is pending. He started on an IV fluid challenge and referred to the hospitalist for admission. Patient otherwise denies changes in medication regiment. Past Medical History Cardiac Medical History: Reports: Hypertension Renal/ Medical History: Reports: Other - BPH Malignancy Medical History: Reports: Other - Multiple myeloma Social History Information Source: Patient Lives with: Alone Smoking Status: Former Smoker Last Time Smoked: 08/24/1967 Frequency of Alcohol Use: None Hx Recreational Drug Use: No Drugs: None Hx Prescription Drug Abuse: No - Advance Directive Resuscitation Status: Full Code Family History Family History: Hypertension Parental Family History Reviewed: Yes Children Family History Reviewed: Yes Sibling(s) Family History Reviewed.: Yes Medication/Allergy Home Medications: Cetirizine HCl [Zyrtec 10 mg Tablet] 10 mg PO DAILYP PRN 12/04/17 Dexamethasone [Decadron 4 Mg Tablet] 20 mg PO FR@1000 12/04/17 Finasteride [Proscar 5 mg Tablet] 5 mg PO DAILY 12/04/17 Morphine Sulfate [Morphine Ir 15 Mg Tablet] 15 mg PO Q4HP PRN 12/04/17 Ondansetron HCl [Zofran 8 mg Tablet] 8 mg PO Q8HP PRN 12/04/17 Pantoprazole Sodium [Protonix] 40 mg PO BIDACBS 12/04/17 Tamsulosin HCl [Flomax 0.4 mg Cap.sr] 0.4 mg PO DAILY 12/04/17 Valacyclovir HCl [Valtrex 500 Mg Tablet] 500 mg PO DAILY 12/04/17 Allergies/Adverse Reactions: amoxicillin Allergy (Verified 12/04/17 14:43) Review of Systems Constitutional: PRESENT: as per HPI, anorexia, fatigue, weakness. ABSENT: fever (s), headache(s), night sweats Eyes: ABSENT: visual disturbances Ears: ABSENT: hearing changes Cardiovascular: ABSENT: chest pain, dyspnea on exertion, edema, orthropnea, palpitations Respiratory: ABSENT: cough, hemoptysis Gastrointestinal: PRESENT: as per HPI. ABSENT: diarrhea, dysphagia, heartburn, hematemesis, hematochezia Genitourinary: ABSENT: dysuria, hematuria Musculoskeletal: ABSENT: joint swelling Integumentary: ABSENT: rash, wounds Neurological: ABSENT: abnormal gait, abnormal speech, confusion, dizziness, focal weakness, syncope Psychiatric: ABSENT: anxiety, depression, homidical ideation, suicidal ideation Endocrine: ABSENT: cold intolerance, heat intolerance, polydipsia, polyuria Hematologic/Lymphatic: ABSENT: easy bleeding, easy bruising Physical Exam Vital Signs: Temp Pulse Resp BP Pulse Ox 98.2 F 72 20 129/74 H 98 12/05/17 03:52 12/05/17 03:52 12/05/17 03:52 12/05/17 03:52 12/05/17 03:52 Intake & Output 12/03/17 12/04/17 12/05/17 11:59 11:59 11:59 Output Total 775 Balance -775 Weight 79.4 kg General appearance: PRESENT: no acute distress, well-developed, well-nourished Head exam: PRESENT: atraumatic, normocephalic Eye exam: PRESENT: conjunctiva pink, EOMI, PERRLA. ABSENT: scleral icterus Ear exam: PRESENT: normal external ear exam Mouth exam: PRESENT: moist, tongue midline Neck exam: ABSENT: carotid bruit, JVD, lymphadenopathy, thyromegaly Respiratory exam: PRESENT: clear to auscultation misty. ABSENT: rales, rhonchi, wheezes Cardiovascular exam: PRESENT: RRR. ABSENT: diastolic murmur, rubs, systolic murmur Pulses: PRESENT: normal dorsalis pedis pul Vascular exam: PRESENT: normal capillary refill GI/Abdominal exam: PRESENT: normal bowel sounds, soft. ABSENT: distended, guarding, mass, organolmegaly, rebound, tenderness Rectal exam: PRESENT: deferred Extremities exam: PRESENT: full ROM. ABSENT: calf tenderness, clubbing, pedal edema Neurological exam: PRESENT: alert, awake, oriented to person, oriented to place , oriented to time, oriented to situation, CN II-XII grossly intact. ABSENT: motor sensory deficit Psychiatric exam: PRESENT: appropriate affect, normal mood. ABSENT: homicidal ideation, suicidal ideation Skin exam: PRESENT: dry, intact, warm. ABSENT: cyanosis, rash Results Impressions: KUB X-Ray 12/04/17 15:18 IMPRESSION: NO RADIOGRAPHIC EVIDENCE FOR ACUTE ABDOMINAL DISEASE. Abdomen/Pelvis CT 12/04/17 16:33 IMPRESSION: SINGLE PUNCTATE NONOBSTRUCTING CALCULUS WITHIN THE LOWER POLE LEFT KIDNEY WITHOUT LOWER URINARY TRACT STONES OR HYDRONEPHROSIS. NUMEROUS LYTIC LESIONS THROUGHOUT THE VISUALIZED APPENDICULAR AND AXIAL SKELETON DESCRIBED ABOVE COMPATIBLE WITH KNOWN MULTIPLE MYELOMA. PATIENT IS AT HIGH RISK FOR PATHOLOGIC FRACTURES GIVEN LOCATION OF MANY OF THE LESIONS IN THE SACRUM, PELVIS, AND RIGHT AND LEFT FEMUR. NO ACUTE FRACTURES IDENTIFIED AT THIS TIME. Assessment & Plan - Diagnosis (1) Acute kidney failure Is this a current diagnosis for this admission?: Yes Plan: Multifactorial secondary to dehydration, multiple myeloma possible lenalidomide. Urinalysis pending patient has had no urine output over 4 hours despite 3 L normal saline challenge renal dosed dopamine initiated, continuing normal saline challenge. Avoid nephrotoxic meds and doses follow-up urinalysis and nephrology consult. (2) Anemia Is this a current diagnosis for this admission?: Yes Plan: Occult stool negative, likely secondary to multiple myeloma. Defer to hematology oncology. (3) Metabolic acidosis Is this a current diagnosis for this admission?: Yes Plan: Likely secondary to multiple myeloma and possible starvation. Reevaluate chemistry after D5 hydration. (4) Multiple myeloma Is this a current diagnosis for this admission?: Yes Plan: Oncology consultation. - Time Time Spent: 50 to 70 Minutes Critical Time spent with patient: Less than 15 minutes - Inpatient Certification Medical Necessity: Need Close Monitoring Due to Risk of Patient Decompensation
[2017-12-05] MEDS ORDERED: DEXTROSE 5%-1/2 NORMAL SALINE 1,000 ML IV PRN (06:08)
[2017-12-05 06:14] LABS: ANION GAP 12 (5-19); BLOOD UREA NITROGEN 29 mg/dL (7-20); CARBON DIOXIDE 17 mmol/L (22-30); CHLORIDE 113 mmol/L (98-107); GLUCOSE 101 mg/dL (75-110); POTASSIUM 4.4 mmol/L (3.6-5.0)
[2017-12-05] MEDS: LANSOPRAZOLE 30 MG TAB.RAP.DR PO SCH ×2 (09:07→17:38)
[2017-12-05] MEDS: FINASTERIDE 5 MG TABLET PO SCH (09:07)
[2017-12-05] MEDS: TAMSULOSIN HCL 0.4 MG CAP.SR.24H PO SCH (09:07)
[2017-12-05] MEDS: DOCUSATE SODIUM 100 MG CAPSULE PO SCH ×2 (09:08→17:38)
--- NOTE | 2017-12-05 09:56 | PDOC PROGRESS REPORT ---
Subjective Progress Note for:: 12/05/17 Subjective:: Patient is somewhat feeling better ; no nausea no vomiting no abdominal pain no fever no chills He tolerated breakfast this morning Reason For Visit: ACUTE RENAL FAILURE, MULTIPLE MYELOMA Physical Exam Vital Signs: Temp Pulse Resp BP Pulse Ox 98.2 F 66 14 114/64 99 12/05/17 07:40 12/05/17 07:40 12/05/17 07:40 12/05/17 07:40 12/05/17 07:40 Intake & Output 12/04/17 12/05/17 12/06/17 00:59 00:59 00:59 Intake Total 3045 Output Total 775 1090 Balance -775 1955 Weight 79.4 kg 79.4 kg General appearance: PRESENT: no acute distress, well-developed, well-nourished, other - Pale looking somewhat chronically ill Head exam: PRESENT: atraumatic, normocephalic Eye exam: PRESENT: conjunctiva pink, EOMI, PERRLA. ABSENT: scleral icterus Respiratory exam: PRESENT: clear to auscultation misty. ABSENT: rales, rhonchi, wheezes Cardiovascular exam: PRESENT: RRR. ABSENT: diastolic murmur, rubs, systolic murmur GI/Abdominal exam: PRESENT: normal bowel sounds, soft. ABSENT: distended, guarding, mass, organolmegaly, rebound, tenderness Extremities exam: PRESENT: full ROM. ABSENT: calf tenderness, clubbing, pedal edema Neurological exam: PRESENT: alert, awake, oriented to person, oriented to place , oriented to time, oriented to situation, CN II-XII grossly intact. ABSENT: motor sensory deficit Results Laboratory Results: 12/05/17 05:44 12/05/17 05:44 12/05/17 12/05/17 05:44 05:44 WBC 5.9 RBC 3.31 L Hgb 9.2 L Hct 26.9 L MCV 81 MCH 27.9 MCHC 34.3 RDW 14.7 H Plt Count 134 L Seg Neutrophils % 76.8 Lymphocytes % 8.8 L Monocytes % 11.8 Eosinophils % 2.3 Basophils % 0.3 Absolute Neutrophils 4.5 Absolute Lymphocytes 0.5 Absolute Monocytes 0.7 Absolute Eosinophils 0.1 Absolute Basophils 0.0 Sodium 142.0 Potassium 4.4 Chloride 113 H Carbon Dioxide 17 L Anion Gap 12 BUN 29 H Creatinine 2.01 H Est GFR ( Amer) 40 L Est GFR (Non-Af Amer) 33 L Glucose 101 Calcium 8.0 L Impressions: KUB X-Ray 12/04/17 15:18 IMPRESSION: NO RADIOGRAPHIC EVIDENCE FOR ACUTE ABDOMINAL DISEASE. Abdomen/Pelvis CT 12/04/17 16:33 IMPRESSION: SINGLE PUNCTATE NONOBSTRUCTING CALCULUS WITHIN THE LOWER POLE LEFT KIDNEY WITHOUT LOWER URINARY TRACT STONES OR HYDRONEPHROSIS. NUMEROUS LYTIC LESIONS THROUGHOUT THE VISUALIZED APPENDICULAR AND AXIAL SKELETON DESCRIBED ABOVE COMPATIBLE WITH KNOWN MULTIPLE MYELOMA. PATIENT IS AT HIGH RISK FOR PATHOLOGIC FRACTURES GIVEN LOCATION OF MANY OF THE LESIONS IN THE SACRUM, PELVIS, AND RIGHT AND LEFT FEMUR. NO ACUTE FRACTURES IDENTIFIED AT THIS TIME. Assessment & Plan - Diagnosis (1) Acute kidney failure Is this a current diagnosis for this admission?: Yes Plan: Acute renal failure likely secondary to dehydration She is renal function is already improved with a creatinine of 2 We will continue to hydrate Repeat labs in a.m. Patient may be discharged in 24 hours if renal function has improved (2) Dehydration Is this a current diagnosis for this admission?: Yes (3) Multiple myeloma Qualifiers: Multiple myeloma remission status: unspecified Qualified Code(s): C90.00 - Multiple myeloma not having achieved remission Is this a current diagnosis for this admission?: Yes (4) Chronic pain Qualifiers: Chronic pain type: other chronic pain Qualified Code(s): G89.29 - Other chronic pain Is this a current diagnosis for this admission?: Yes - Time Time Spent with patient: Continue IV fluids Continue pain meds Follow-up BMP in a.m. Time Spent with patient: 25-34 minutes - Inpatient Certification Based on my medical assessment, after consideration of the patient's comorbidities, presenting symptoms, or acuity I expect that the services needed warrant INPATIENT care.: Yes I certify that my determination is in accordance with my understanding of Medicare's requirements for reasonable and necessary INPATIENT services [42 CFR 412.3e].: Yes Medical Necessity: Need For IV Fluids, Need for Pain Control
--- NOTE | 2017-12-05 11:22 | PDOC CONSULTATION ---
Consultation Consult Date: 12/05/17 Attending physician:: ZACHARY CASEY Consult reason:: Severe abd pain, Nausea, weakness, Acute on chronic RF, Myeloma History of Present Illness Admission Date/PCP: 12/04/17 18:07 Patient complains of: Weakness, abd pain History of Present Illness: BRIDGER RITCHIE is a 72 year old male w/ known hx of myeloma, previously was on Revlimid/Velcade/Dex (RVD) but recently had revlimid stopped 2nd worsening kidney fxn, had received velcade and dex this week, came for velcade dose on thursday, in office pt was very weak, having diffuse abd and flank pain, cr had increased. Pt had 4 day hx of poor po intake, constipation, nausea and increasing abd/flank pain. We sent pt from office to ED for evaluation. There pt had KUB which was unremarkable followed by CT stone protocol, there was a small non obstructing L kidney stone, also diffuse bone mets that was known, but heavy burden of dx in L hemipelvis. He has been aggressively hydrated x 24 hours and feels much better today, now have more urine output, cr better this am. Past Medical History Cardiac Medical History: Reports: Hypertension Renal/ Medical History: Reports: Other - BPH Malignancy Medical History: Reports: Other - Multiple myeloma Past Surgical History Past Surgical History: Reports: Other - BMBx Social History Lives with: Alone Smoking Status: Former Smoker Last Time Smoked: 08/24/1967 Frequency of Alcohol Use: None Hx Recreational Drug Use: No Drugs: None Hx Prescription Drug Abuse: No - Advance Directive Resuscitation Status: Full Code Family History Family History: Hypertension Parental Family History Reviewed: Yes Children Family History Reviewed: Yes Sibling(s) Family History Reviewed.: Yes Medication/Allergy Home Medications: Cetirizine HCl [Zyrtec 10 mg Tablet] 10 mg PO DAILYP PRN 12/04/17 Dexamethasone [Decadron 4 Mg Tablet] 20 mg PO FR@1000 12/04/17 Finasteride [Proscar 5 mg Tablet] 5 mg PO DAILY 12/04/17 Morphine Sulfate [Morphine Ir 15 Mg Tablet] 15 mg PO Q4HP PRN 12/04/17 Ondansetron HCl [Zofran 8 mg Tablet] 8 mg PO Q8HP PRN 12/04/17 Pantoprazole Sodium [Protonix] 40 mg PO BIDACBS 12/04/17 Tamsulosin HCl [Flomax 0.4 mg Cap.sr] 0.4 mg PO DAILY 12/04/17 Valacyclovir HCl [Valtrex 500 Mg Tablet] 500 mg PO DAILY 12/04/17 Allergies/Adverse Reactions: amoxicillin Allergy (Verified 12/04/17 14:43) Review of Systems Constitutional: PRESENT: anorexia, fatigue, weakness, weight loss Gastrointestinal: PRESENT: abdominal pain, bloating, constipation, nausea Musculoskeletal: PRESENT: back pain Neurological: ABSENT: abnormal gait, abnormal speech, confusion, dizziness, focal weakness, syncope Physical Exam Vital Signs: Temp Pulse Resp BP Pulse Ox 98.2 F 66 14 114/64 99 12/05/17 07:40 12/05/17 07:40 12/05/17 07:40 12/05/17 07:40 12/05/17 07:40 Intake & Output 12/04/17 12/05/17 12/06/17 06:59 06:59 06:59 Intake Total 3045 Output Total 1865 Balance 1180 Weight 79.4 kg General appearance: PRESENT: no acute distress, well-developed, well-nourished Head exam: PRESENT: atraumatic, normocephalic Eye exam: PRESENT: conjunctiva pink, EOMI, PERRLA. ABSENT: scleral icterus Ear exam: PRESENT: normal external ear exam Mouth exam: PRESENT: moist, tongue midline Neck exam: ABSENT: carotid bruit, JVD, lymphadenopathy, thyromegaly Respiratory exam: PRESENT: clear to auscultation misty. ABSENT: rales, rhonchi, wheezes Cardiovascular exam: PRESENT: RRR. ABSENT: diastolic murmur, rubs, systolic murmur Pulses: PRESENT: normal dorsalis pedis pul Vascular exam: PRESENT: normal capillary refill GI/Abdominal exam: PRESENT: normal bowel sounds, soft. ABSENT: distended, guarding, mass, organolmegaly, rebound, tenderness Rectal exam: PRESENT: deferred Extremities exam: PRESENT: full ROM. ABSENT: calf tenderness, clubbing, pedal edema Neurological exam: PRESENT: alert, awake, oriented to person, oriented to place , oriented to time, oriented to situation, CN II-XII grossly intact. ABSENT: motor sensory deficit Psychiatric exam: PRESENT: appropriate affect, normal mood. ABSENT: homicidal ideation, suicidal ideation Skin exam: PRESENT: dry, intact, warm. ABSENT: cyanosis, rash Results Laboratory Results: 12/05/17 05:44 12/05/17 05:44 12/05/17 12/05/17 05:44 05:44 WBC 5.9 RBC 3.31 L Hgb 9.2 L Hct 26.9 L MCV 81 MCH 27.9 MCHC 34.3 RDW 14.7 H Plt Count 134 L Seg Neutrophils % 76.8 Lymphocytes % 8.8 L Monocytes % 11.8 Eosinophils % 2.3 Basophils % 0.3 Absolute Neutrophils 4.5 Absolute Lymphocytes 0.5 Absolute Monocytes 0.7 Absolute Eosinophils 0.1 Absolute Basophils 0.0 Sodium 142.0 Potassium 4.4 Chloride 113 H Carbon Dioxide 17 L Anion Gap 12 BUN 29 H Creatinine 2.01 H Est GFR ( Amer) 40 L Est GFR (Non-Af Amer) 33 L Glucose 101 Calcium 8.0 L Impressions: KUB X-Ray 12/04/17 15:18 IMPRESSION: NO RADIOGRAPHIC EVIDENCE FOR ACUTE ABDOMINAL DISEASE. Abdomen/Pelvis CT 12/04/17 16:33 IMPRESSION: SINGLE PUNCTATE NONOBSTRUCTING CALCULUS WITHIN THE LOWER POLE LEFT KIDNEY WITHOUT LOWER URINARY TRACT STONES OR HYDRONEPHROSIS. NUMEROUS LYTIC LESIONS THROUGHOUT THE VISUALIZED APPENDICULAR AND AXIAL SKELETON DESCRIBED ABOVE COMPATIBLE WITH KNOWN MULTIPLE MYELOMA. PATIENT IS AT HIGH RISK FOR PATHOLOGIC FRACTURES GIVEN LOCATION OF MANY OF THE LESIONS IN THE SACRUM, PELVIS, AND RIGHT AND LEFT FEMUR. NO ACUTE FRACTURES IDENTIFIED AT THIS TIME. Status: Image reviewed by me Assessment & Plan - Diagnosis (1) Acute kidney failure Qualifiers: Acute renal failure type: with other specified pathological lesion Qualified Code(s): N17.8 - Other acute kidney failure Is this a current diagnosis for this admission?: Yes Plan: Likely related to dehydration, myeloma and possibly prev revlimid, now improved , cont to monitor, cont hydration x 24 more hours (2) Pain, neoplasm-related Is this a current diagnosis for this admission?: Yes Plan: Related in part to bone mets, cont morphine, pain better this am (3) Dehydration Is this a current diagnosis for this admission?: Yes Plan: Likely 2nd to disease process and treatment, cont hydration (4) Multiple myeloma Qualifiers: Multiple myeloma remission status: not in remission Qualified Code(s): C90.00 - Multiple myeloma not having achieved remission Is this a current diagnosis for this admission?: Yes Plan: On velcade/dex, cont as outpt, labs in office did indicate improvement in disease. (5) Anemia Qualifiers: Bone marrow failure anemia type: pancytopenia, antineoplastic chemotherapy- induced Is this a current diagnosis for this admission?: Yes Plan: Likely in part related to treatment and disease process, hb 9, no need for intervention as of now (6) Left nephrolithiasis Is this a current diagnosis for this admission?: Yes Plan: could be contributing in some part to change in pain presentation, fluids will help, stone small enough to pass on its own (7) Constipation due to pain medication Is this a current diagnosis for this admission?: Yes Plan: Soap suds enema ordered today. - Time Time Spent: Greater than 70 Minutes - Inpatient Certification Based on my medical assessment, after consideration of the patient's comorbidities, presenting symptoms, or acuity I expect that the services needed warrant INPATIENT care.: Yes I certify that my determination is in accordance with my understanding of Medicare's requirements for reasonable and necessary INPATIENT services [42 CFR 412.3e].: Yes Medical Necessity: Need For IV Fluids, Need for Pain Control, Risk of Complication if Not Cared For in Hospital
[2017-12-05] MEDS: MORPHINE SULFATE IR 15 MG TABLET PO PRN (11:39)
[2017-12-05] MEDS ORDERED: BISACODYL 5 MG TABEC PO ONE (18:30)
[2017-12-05] MEDS ORDERED: POLYETHYLENE GLYCOL 3350 POWDER 17 GM/1 PACKET PO ONE (18:30)
[2017-12-06] MEDS: MORPHINE SULFATE IR 15 MG TABLET PO PRN (01:06)
[2017-12-06] MEDS ORDERED: MORPHINE SULFATE IR 15 MG TABLET PO STA (02:19)
[2017-12-06] MEDS ORDERED: MORPHINE SULFATE IR 15 MG TABLET PO PRN (03:43)
[2017-12-06] MEDS: OXYCODONE HCL IR 5 MG TABLET PO PRN ×2 (04:22→11:21)
[2017-12-06] MEDS: HEPARIN SOD (PORCINE) 5,000 UNIT/ML 1 ML SYRINGE SUBCUT SCH ×2 (06:13→13:43)
[2017-12-06 07:25] LABS: ANION GAP 12 (5-19); BLOOD UREA NITROGEN 22 mg/dL (7-20); CALCIUM 8.4 mg/dL (8.4-10.2); CARBON DIOXIDE 17 mmol/L (22-30); CHLORIDE 115 mmol/L (98-107); GLUCOSE 100 mg/dL (75-110); POTASSIUM 4.4 mmol/L (3.6-5.0); SODIUM 144.1 mmol/L (137-145)
[2017-12-06] MEDS: DOCUSATE SODIUM 100 MG CAPSULE PO SCH (09:07)
[2017-12-06] MEDS: TAMSULOSIN HCL 0.4 MG CAP.SR.24H PO SCH (09:07)
[2017-12-06] MEDS: LANSOPRAZOLE 30 MG TAB.RAP.DR PO SCH (09:08)
[2017-12-06] MEDS: FINASTERIDE 5 MG TABLET PO SCH (09:08)
[2017-12-06] MEDS ORDERED: POLYETHYLENE GLYCOL 3350 POWDER 17 GM/1 PACKET PO SCH (10:00)
[2017-12-06] MEDS ORDERED: VALACYCLOVIR HCL 500 MG TABLET PO SCH (10:00)
[2017-12-06] MEDS ORDERED: BISACODYL 5 MG TABEC PO SCH (10:00)
--- NOTE | 2017-12-06 10:20 | PDOC PROGRESS REPORT ---
Subjective Progress Note for:: 12/06/17 Subjective:: Seems much better today, still having pain L hip area/flank area, but controlled by current regimen, cr better, still no BM so I ordered mag citrate and encouraged him to go ahead w/ enema to get BM today. Reason For Visit: ACUTE RENAL FAILURE, MULTIPLE MYELOMA Physical Exam Vital Signs: Temp Pulse Resp BP Pulse Ox 97.5 F 72 16 143/79 H 99 12/06/17 08:10 12/06/17 08:10 12/06/17 08:10 12/06/17 08:10 12/06/17 08:10 Intake & Output 12/05/17 12/06/17 12/07/17 06:59 06:59 06:59 Intake Total 3045 3893 Output Total 1865 3780 Balance 1180 113 Weight 79.4 kg 80.9 kg General appearance: PRESENT: no acute distress, well-developed, well-nourished Head exam: PRESENT: atraumatic, normocephalic Eye exam: PRESENT: conjunctiva pink, EOMI, PERRLA. ABSENT: scleral icterus Ear exam: PRESENT: normal external ear exam Mouth exam: PRESENT: moist, tongue midline Neck exam: ABSENT: carotid bruit, JVD, lymphadenopathy, thyromegaly Respiratory exam: PRESENT: clear to auscultation misty. ABSENT: rales, rhonchi, wheezes Cardiovascular exam: PRESENT: RRR. ABSENT: diastolic murmur, rubs, systolic murmur Pulses: PRESENT: normal dorsalis pedis pul Vascular exam: PRESENT: normal capillary refill GI/Abdominal exam: PRESENT: normal bowel sounds, soft. ABSENT: distended, guarding, mass, organolmegaly, rebound, tenderness Rectal exam: PRESENT: deferred Extremities exam: PRESENT: full ROM. ABSENT: calf tenderness, clubbing, pedal edema Neurological exam: PRESENT: alert, awake, oriented to person, oriented to place , oriented to time, oriented to situation, CN II-XII grossly intact. ABSENT: motor sensory deficit Psychiatric exam: PRESENT: appropriate affect, normal mood. ABSENT: homicidal ideation, suicidal ideation Skin exam: PRESENT: dry, intact, warm. ABSENT: cyanosis, rash Results Laboratory Results: 12/05/17 05:44 12/06/17 05:10 12/06/17 05:10 Sodium 144.1 Potassium 4.4 Chloride 115 H Carbon Dioxide 17 L Anion Gap 12 BUN 22 H Creatinine 1.85 H Est GFR ( Amer) 44 L Est GFR (Non-Af Amer) 36 L Glucose 100 Calcium 8.4 Impressions: KUB X-Ray 12/04/17 15:18 IMPRESSION: NO RADIOGRAPHIC EVIDENCE FOR ACUTE ABDOMINAL DISEASE. Abdomen/Pelvis CT 12/04/17 16:33 IMPRESSION: SINGLE PUNCTATE NONOBSTRUCTING CALCULUS WITHIN THE LOWER POLE LEFT KIDNEY WITHOUT LOWER URINARY TRACT STONES OR HYDRONEPHROSIS. NUMEROUS LYTIC LESIONS THROUGHOUT THE VISUALIZED APPENDICULAR AND AXIAL SKELETON DESCRIBED ABOVE COMPATIBLE WITH KNOWN MULTIPLE MYELOMA. PATIENT IS AT HIGH RISK FOR PATHOLOGIC FRACTURES GIVEN LOCATION OF MANY OF THE LESIONS IN THE SACRUM, PELVIS, AND RIGHT AND LEFT FEMUR. NO ACUTE FRACTURES IDENTIFIED AT THIS TIME. Assessment & Plan - Diagnosis (1) Acute kidney failure Qualifiers: Acute renal failure type: with other specified pathological lesion Qualified Code(s): N17.8 - Other acute kidney failure Is this a current diagnosis for this admission?: Yes Plan: Improved, cont hydration (2) Pain, neoplasm-related Is this a current diagnosis for this admission?: Yes Plan: Multifactorial, cont regimen, he has MSIR at home when ready for d/c (3) Dehydration Is this a current diagnosis for this admission?: Yes Plan: Hydration (4) Multiple myeloma Qualifiers: Multiple myeloma remission status: not in remission Qualified Code(s): C90.00 - Multiple myeloma not having achieved remission Is this a current diagnosis for this admission?: Yes Plan: Will resume therapy as outpt (5) Anemia Qualifiers: Bone marrow failure anemia type: pancytopenia, antineoplastic chemotherapy- induced Is this a current diagnosis for this admission?: Yes Plan: Hb stable hold on transfusion (6) Left nephrolithiasis Is this a current diagnosis for this admission?: Yes Plan: Stone should pass, encouraged aggressive oral hydration once d/c'd (7) Constipation due to pain medication Is this a current diagnosis for this admission?: Yes Plan: He needs BM before d/c, wrote orders today
[2017-12-06 12:55] VITALS: BP 117/57
[2017-12-06] MEDS ORDERED: MAGNESIUM CITRATE 296 ML BOTTLE PO ONE (13:00)
--- NOTE | 2017-12-06 16:42 | PDOC DISCHARGE SUMMARY ---
General - Admit/Disc Date/PCP Admission Date/Primary Care Provider: 12/04/17 18:07 Dr. Pires Discharge Date: 12/06/17 - Discharge Diagnosis (1) Acute kidney failure Is this a current diagnosis for this admission?: Yes (2) Dehydration Is this a current diagnosis for this admission?: Yes (3) Multiple myeloma Is this a current diagnosis for this admission?: Yes (4) Chronic pain Is this a current diagnosis for this admission?: Yes - Additional Information Resuscitation Status: Full Code Discharge Diet: As Tolerated Discharge Activity: Activity As Tolerated Home Medications: Cetirizine HCl [Zyrtec 10 mg Tablet] 10 mg PO DAILYP PRN 12/04/17 Dexamethasone [Decadron 4 mg Tablet] 20 mg PO FR@1000 12/04/17 Finasteride [Proscar 5 mg Tablet] 5 mg PO DAILY 12/04/17 Morphine Sulfate [Morphine Ir 15 mg Tablet] 15 mg PO Q4HP PRN 12/04/17 Ondansetron HCl [Zofran 8 mg Tablet] 8 mg PO Q8HP PRN 12/04/17 Pantoprazole Sodium [Protonix] 40 mg PO BIDACBS 12/04/17 Tamsulosin HCl [Flomax 0.4 mg Cap.sr] 0.4 mg PO DAILY 12/04/17 Valacyclovir HCl [Valtrex 500 mg Tablet] 500 mg PO DAILY 12/04/17 History of Present Illness Patient complains of: nausea poor appetite History of Present Illness: BRIDGER RITCHIE is a 72 year old male with past medical history of BPH, multiple myeloma and subsequent opiate dependent pain. Patient presents with nausea and poor appetite for 5 days. He presents to his oncologist and subsequently referred to the emergency room for evaluation where he is found to have anemia and acute renal failure. Patient's former chemotherapy included lenalidomide, urinalysis is pending. He started on an IV fluid challenge and referred to the hospitalist for admission. Patient otherwise denies changes in medication regiment. Hospital Course Hospital Course: This is a 72-year-old with a known history of multiple myeloma treated with velkade/Dex Patient presented with 4 days of poor intake anorexia and abdominal pain upon evaluation in the ED was found in acute renal failure with a creatinine of 2.7; prior creatinine was normal at 1 Patient was admitted for hydration 1 acute renal failure Secondary to poor intake dehydration CT abdomen and pelvis showed a non obstructing stone left kidney and diffuse bony metastasis Patient was treated with IV fluids and morphine for pain After 48 hours his creatinine was 1.7 ; patient was discharged home 2-chronic constipation Patient was treated symptomatically prior to discharge Patient was advised to have a bowel regimen at home with Dulcolax and MiraLAX chronic constipation secondary 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 Pires as an outpatient 4 multiple myeloma Patient will be seen at 's office after discharge to resume chemotherapy Physical Exam Vital Signs: Temp Pulse Resp BP Pulse Ox 97.5 F 72 16 111/58 L 99 12/06/17 12:26 12/06/17 12:26 12/06/17 12:26 12/06/17 12:26 12/06/17 12:26 Intake & Output 12/05/17 12/06/17 12/07/17 00:59 00:59 00:59 Intake Total 5565 2091 Output Total 775 3220 3075 Balance -775 2345 -984 Weight 79.4 kg 79.4 kg 80.9 kg General appearance: PRESENT: no acute distress, well-developed, well-nourished, other - Pale looking somewhat chronically ill Head exam: PRESENT: atraumatic, normocephalic Eye exam: PRESENT: conjunctiva pink, EOMI, PERRLA. ABSENT: scleral icterus Respiratory exam: PRESENT: clear to auscultation misty. ABSENT: rales, rhonchi, wheezes Cardiovascular exam: PRESENT: RRR. ABSENT: diastolic murmur, rubs, systolic murmur GI/Abdominal exam: PRESENT: normal bowel sounds, soft. ABSENT: distended, guarding, mass, organolmegaly, rebound, tenderness Extremities exam: PRESENT: full ROM. ABSENT: calf tenderness, clubbing, pedal edema Neurological exam: PRESENT: alert, awake, oriented to person, oriented to place , oriented to time, oriented to situation, CN II-XII grossly intact. ABSENT: motor sensory deficit Results Laboratory Results: 12/05/17 05:44 12/06/17 05:10 12/06/17 05:10 Sodium 144.1 Potassium 4.4 Chloride 115 H Carbon Dioxide 17 L Anion Gap 12 BUN 22 H Creatinine 1.85 H Est GFR ( Amer) 44 L Est GFR (Non-Af Amer) 36 L Glucose 100 Calcium 8.4 Impressions: KUB X-Ray 12/04/17 15:18 IMPRESSION: NO RADIOGRAPHIC EVIDENCE FOR ACUTE ABDOMINAL DISEASE. Abdomen/Pelvis CT 12/04/17 16:33 IMPRESSION: SINGLE PUNCTATE NONOBSTRUCTING CALCULUS WITHIN THE LOWER POLE LEFT KIDNEY WITHOUT LOWER URINARY TRACT STONES OR HYDRONEPHROSIS. NUMEROUS LYTIC LESIONS THROUGHOUT THE VISUALIZED APPENDICULAR AND AXIAL SKELETON DESCRIBED ABOVE COMPATIBLE WITH KNOWN MULTIPLE MYELOMA. PATIENT IS AT HIGH RISK FOR PATHOLOGIC FRACTURES GIVEN LOCATION OF MANY OF THE LESIONS IN THE SACRUM, PELVIS, AND RIGHT AND LEFT FEMUR. NO ACUTE FRACTURES IDENTIFIED AT THIS TIME. Qualifiers - * PATEINT BEING DISCHARGED WITH ANY OF THE FOLLOWING DIAGNOSIS?: No - Follow-up with oncology
== END 2017-12-06 16:22 | disposition home or self-care (01) | DRG 683 ==
LOC: ER 14:36 → EH 18:07 → 4W 19:48 → 3S 21:18
PROVIDERS: ADMIT Family Medicine; ATTEND Family Medicine
DX: N17.9 Acute kidney failure, unspecified (principal); E87.2 Acidosis; C90.00 Multiple myeloma not having achieved remission; F11.20 Opioid dependence, uncomplicated; E86.0 Dehydration; G89.3 Neoplasm related pain (acute) (chronic); K59.03 Drug induced constipation; D63.8 Anemia in other chronic diseases classified elsewhere; R10.9 Unspecified abdominal pain; I10 Essential (primary) hypertension; K21.9 Gastro-esophageal reflux disease without esophagitis; N20.0 Calculus of kidney; N40.0 Benign prostatic hyperplasia without lower urinary tract symptoms; Z60.2 Problems related to living alone; Z87.891 Personal history of nicotine dependence; Z79.891 Long term (current) use of opiate analgesic; Z79.52 Long term (current) use of systemic steroids; Z79.899 Other long term (current) drug therapy
CPT/HCPCS: 36415; 74018; 74176; 80048; 80053; 81001; 82550; 83735; 84100; 85025; 99291; J1265; J1644; J3490; J7030

== ENCOUNTER → 2017-12-18 | Outpatient (CLI) | payer MEDICARE ==
--- NOTE | 2017-12-18 16:37 | RADIOLOGY REPORT (SQ) ---
EXAM DESCRIPTION: BONE SURVEY COMPLETE COMPLETED DATE/TIME: 12/18/2017 4:19 pm REASON FOR STUDY: C90.00 MULTIPLE MYELOMA NOT HAVING ACHIEVED REMISSION COMPARISON: 09/14/2017 TECHNIQUE: Images of the axial and proximal appendicular skeleton are obtained, along with lateral s kull and frontal chest films. LIMITATIONS: None. FINDINGS: AP CHEST: There are known lytic lesions in the sternum, ribs and clavicles. No progressio n. LATERAL SKULL: Too numerous to count lytic lesions without obvious progression. AP BOTH HUMERI: Multiple lytic lesions are stable. TWO-VIEW LUMBAR SPINE: Stable lytic lesions. TWO-VIEW THORACIC SPINE: Stable lytic lesions. Stable upper mid and lower compression fractures. AP PELVIS: Stable lytic lesions. AP BOTH FEMURS: Stable lytic lesions. OTHER: No other significant finding. IMPRESSION: Diffuse lytic lesions without interval progression. Stable compression fractures in the mid and lower thoracic spine. Reading location - IP/workstation name: [email or web address]
== END ==
LOC: RAD 15:33
PROVIDERS: ATTEND Internal Medicine Hematology & Oncology
DX: C90.00 Multiple myeloma not having achieved remission (principal)
CPT/HCPCS: 77075

== ENCOUNTER 2018-01-01 09:35 | Emergency (ER) | payer MEDICARE ==
--- NOTE | 2018-01-01 10:06 | ER Document Report ---
ED Medical Screen (RME) - General Chief Complaint: Abdominal Pain Stated Complaint: ABDOMINAL PAIN Time Seen by Provider: 01/01/18 09:58 TRAVEL OUTSIDE OF THE [place] IN LAST 30 DAYS: No - HPI Notes: 01/01/18 10:04 RAPID MEDICAL EVALUATION DISCLOSURE I have seen this patient as part of a Rapid Medical Evaluation and, if applicable, placed any initially appropriate orders. The patient will be seen and fully evaluated, including a full history and physical exam, by a provider ( in Main ED or Fast Track) when a room becomes available. 72-year-old male complains of one-month history of abdominal pain right around his belly button as well as low back pain and a 40 pound weight loss over the last 3 months. He states he had endoscopy scheduled at the [facility] for this week however they called and postponed it until January. He should also states he sees for multiple myeloma and receives some type of shots as treatments. No fevers nausea vomiting or diarrhea. - Related Data Allergies/Adverse Reactions: amoxicillin Allergy (Verified 01/01/18 09:36) Past Medical History - Past Medical History Cardiac Medical History: Reports: Hx Hypertension Renal/ Medical History: Denies: Hx Peritoneal Dialysis Past Surgical History: Reports: Other - BMBx - Immunizations Hx Diphtheria, Pertussis, Tetanus Vaccination: Yes History of Influenza Vaccine for 05/2017 - 10/2017 Season: Yes Influenza Administration Date for 05/2017 - 10/2017 Season: 05/24/17 Physical Exam - Vital signs Vitals: Temp Pulse Resp BP Pulse Ox 97.6 F 80 16 132/76 H 99 01/01/18 09:46 01/01/18 09:46 01/01/18 09:46 01/01/18 09:46 01/01/18 09:46 Course - Vital Signs Vital signs: Temp Pulse Resp BP Pulse Ox 97.6 F 80 16 132/76 H 99 01/01/18 09:46 01/01/18 09:46 01/01/18 09:46 01/01/18 09:46 01/01/18 09:46
[2018-01-01 10:43] LABS: ABSOLUTE EOSINOPHILS # (AUTO) 0.2 10^3/uL (0.0-0.6); ABSOLUTE LYMPHOCYTES (AUTO) 0.5 10^3/uL (0.5-4.7); ABSOLUTE MONOCYTES (AUTO) 0.5 10^3/uL (0.1-1.4); ABSOLUTE NEUT (AUTO) 3.2 10^3/uL (1.7-8.2); BASOPHILS % (AUTO) 0.8 % (0-2); EOSINOPHILS % (AUTO) 3.6 % (0-6); HEMATOCRIT 31.8 % (37.9-51.0); HEMOGLOBIN 10.8 g/dL (13.5-17.0); LYMPHOCYTES % (AUTO) 11.5 % (13-45); MEAN CORPUSCULAR HEMOGLOBIN 28.1 pg (27.0-33.4); MEAN CORPUSCULAR HGB CONC 33.8 g/dL (32.0-36.0); MEAN CORPUSCULAR VOLUME 83 fl (80-97); MONOCYTES % (AUTO) 11.5 % (3-13); PLATELET COUNT 223 10^3/uL (150-450); RED BLOOD COUNT 3.83 10^6/uL (4.35-5.55); RED CELL DISTRIBUTION WIDTH 14.1 % (11.5-14.0); SEGMENTED NEUTROPHILS % (AUTO) 72.6 % (42-78); TOTAL CELLS COUNTED % (AUTO) 100 %; WHITE BLOOD COUNT 4.4 10^3/uL (4.0-10.5)
[2018-01-01 11:09] LABS: ALANINE AMINOTRANSFERASE 34 U/L (21-72); ALBUMIN 4.6 g/dL (3.5-5.0); ALKALINE PHOSPHATASE 79 U/L (38-126); ANION GAP 15 (5-19); ASPARTATE AMINO TRANSFERASE 30 U/L (17-59); BILIRUBIN,DIRECT 0.4 mg/dL (0.0-0.4); BILIRUBIN,TOTAL 0.6 mg/dL (0.2-1.3); BLOOD UREA NITROGEN 23 mg/dL (7-20); CALCIUM 9.8 mg/dL (8.4-10.2); CARBON DIOXIDE 21 mmol/L (22-30); CHLORIDE 104 mmol/L (98-107); GLUCOSE 109 mg/dL (75-110); LIPASE 320.7 U/L (23-300); POTASSIUM 4.8 mmol/L (3.6-5.0); TOTAL PROTEIN 7.3 g/dL (6.3-8.2)
[2018-01-01] MEDS ORDERED: MORPHINE SULFATE 10 MG/ML INJ IV ONE (11:17)
--- NOTE | 2018-01-01 11:20 | ER Document Report ---
ED General - General Chief Complaint: Abdominal Pain Stated Complaint: ABDOMINAL PAIN Time Seen by Provider: 01/01/18 09:58 TRAVEL OUTSIDE OF THE [place] IN LAST 30 DAYS: No - HPI Notes: Patient is a 72-year-old male with history of multiple myeloma, under care of oncology, chronic pain, CKD who presents to the ED complaining of abdominal pain behind his umbilicus and surrounding that area over the last month. Patient states that he has had this pain overall for the last 4 months, but worsened over the last month. The pain does not radiate. He still eating and drinking without any difficulties or changes in his symptoms. He is urinating normally and having normal bowel movements. His last bowel movement was yesterday. Patient has weekly treatments for his cancer. Patient is noted to have metastasis throughout his back, pelvis, and legs. He has no other concerns or complaints at this time. Denies any headache, fever, neck pain, URI , sore throat, chest pain, palpitations, syncope, cough, shortness of breath, wheeze, dyspnea, nausea/vomiting/diarrhea, urinary retention, dysuria, hematuria , loss of control of bowel or bladder, numbness/tingling, saddle anesthesia, muscle paralysis/weakness, or rash. - Related Data Allergies/Adverse Reactions: amoxicillin Allergy (Verified 01/01/18 09:36) Home Medications: fentanyl patch, zofran, cetirizine, finistride, oxycodone, flomax, valacyclavir Past Medical History - Social History Smoking Status: Former Smoker Chew tobacco use (# tins/day): No Frequency of alcohol use: None Drug Abuse: None Family History: Hypertension Patient has suicidal ideation: No Patient has homicidal ideation: No - Past Medical History Cardiac Medical History: Reports: Hx Hypertension Renal/ Medical History: Denies: Hx Peritoneal Dialysis Past Surgical History: Reports: Other - BMBx - Immunizations Hx Diphtheria, Pertussis, Tetanus Vaccination: Yes Review of Systems - Review of Systems -: Yes All other systems reviewed and negative Physical Exam - Vital signs Vitals: Temp Pulse Resp BP Pulse Ox 97.6 F 80 16 132/76 H 99 01/01/18 09:46 01/01/18 09:46 01/01/18 09:46 01/01/18 09:46 01/01/18 09:46 - Notes Notes: PHYSICAL EXAMINATION: GENERAL: Well-appearing, well-nourished and in no acute distress. A&Ox4. Answers questions appropriately. EYES: Pupils equal round and reactive to light, extraocular movements intact, sclera anicteric, conjunctiva are normal. LUNGS: Breath sounds clear to auscultation bilaterally and equal. No wheezes rales or rhonchi. HEART: Regular rate and rhythm without murmurs, rubs, gallops. ABDOMEN: Soft, nondistended abdomen. No guarding, no rebound. No masses appreciated. Normal bowel sounds present. No CVA tenderness bilaterally. + tenderness near and around the umbilicus. no hernia noted. Musculoskeletal: FROM to passive/active. Strength 5+/5. Extremities: No cyanosis, clubbing, or edema b/l. Peripheral pulses 2+. Capillary refill less than 3 seconds. NEUROLOGICAL: Normal speech, normal gait. Normal sensory, motor exams PSYCH: Normal mood, normal affect. SKIN: Warm, Dry, normal turgor, no rashes or lesions noted. Course - Re-evaluation Re-evalutation: 01/01/18 11:25 I did review this case with Dr. Pires who recommended US and KUB to further investigate, but otherwise not to scan him. This could be referred pain from his pelvic mets per Dr. Pires. CBC, CMP otherwise unremarkable for acute pathology. 01/01/18 13:30 Patient is an afebrile, well-hydrated, 72-year-old male who presents to the ED with abdominal pain, suspect secondary to his constipation. Vitals are acceptable. PE is otherwise unremarkable. CBC, CMP, urinalysis were acceptable and unremarkable for any acute pathology. KUB showed fecal retention and abdominal ultrasound was unremarkable for acute pathology. Patient is on stool softeners and did have a "good" bowel movement yesterday. There is no evidence of obstruction. Patient is tolerating p.o. without difficulties. He has no significant tachycardia, tachypnea, or hypoxia. Low suspicion/risk for acute appendicitis, bowel obstruction, acute cholecystitis, perforated diverticulitis, incarcerated hernia, pancreatitis, perforated ulcer, peritonitis, sepsis, or other systemic emergent condition at this time. Patient is aware that his condition can change from initial presentation and he needs to monitor symptoms closely and seek medical attention if any acute changes. Use at home laxative, enema and continue stool softeners daily. Conservative measures otherwise for symptoms. Recheck with PCM in 3-5 days. Return to the ED with any worsening/concerning symptoms otherwise as reviewed in discharge. Patient is in agreement. - Vital Signs Vital signs: Temp Pulse Resp BP Pulse Ox 97.6 F 80 16 132/76 H 99 01/01/18 09:46 01/01/18 09:46 01/01/18 09:46 01/01/18 09:46 01/01/18 09:46 - Laboratory Result Diagrams: 01/01/18 10:12 01/01/18 10:12 Laboratory results interpreted by me: 01/01/18 01/01/18 10:12 10:12 RBC 3.83 L Hgb 10.8 L Hct 31.8 L RDW 14.1 H Lymphocytes % 11.5 L Carbon Dioxide 21 L BUN 23 H Creatinine 2.07 H Est GFR ( Amer) 38 L Est GFR (Non-Af Amer) 32 L Lipase 320.7 H Discharge - Discharge Clinical Impression: Constipation Qualifiers: Constipation type: other constipation type Qualified Code(s): K59.09 - Other constipation Unspecified abdominal pain Qualifiers: Abdominal location: periumbilical Qualified Code(s): R10.33 - Periumbilical pain Condition: Stable Disposition: HOME, SELF-CARE Instructions: Observation for Appendicitis ([facility]), Abdominal Pain ([facility]), Bulk Laxatives Additional Instructions: Maintain adequate fluid and food intake [place] diet ([facility].[employer].[facility] Bananas, rice, apples, toast, etc tylenol if needed Monitor for any worsening symptoms Make sure you are staying hydrated enough to urinate and have normal BM's Recheck with your PCM in 3-5 days F/u: with your oncologist next week as well Consider consult with Gastroenterology for ongoing/worsening symptoms Return to the ED with any worsening symptoms and/or development of fever, headache, chest pain, palpitations, syncope, shortness of breath, trouble breathing, abdominal pain, n/v/d, blood in stool/urine, weakness, or other worsening symptoms that are concerning to you. Prescriptions: Magnesium Citrate [Citrate of Magnesia 296 ml Bottle] 296 ml PO ONCE PRN #1 bottle PRN Reason: Forms: Elevated Blood Pressure Referrals: SANDEEP POLANCO MD [Primary Care Provider] - Follow up in 3-5 days MARIE ALEXIS MD [ACTIVE STAFF] - Follow up in 1 week
[2018-01-01 11:27] LABS: APPEARANCE,URINE CLEAR; BILIRUBIN,URINE NEGATIVE (NEGATIVE); COLOR,URINE YELLOW; GLUCOSE, URINE NEGATIVE (NEGATIVE); KETONES,URINE NEGATIVE (NEGATIVE); LEUKOCYTE ESTERASE,URINE NEGATIVE (NEGATIVE); NITRITE,URINE NEGATIVE (NEGATIVE); PROTEIN,URINE NEGATIVE (NEGATIVE); UROBILINOGEN,URINE NEGATIVE mg/dL (<2.0)
--- NOTE | 2018-01-01 11:56 | RADIOLOGY REPORT (SQ) ---
EXAM DESCRIPTION: KUB/ABDOMEN (SINGLE VIEW) COMPLETED DATE/TIME: 01/01/2018 11:45 am REASON FOR STUDY: abd pain near umbilicus COMPARISON: None. NUMBER OF VIEWS: One view. TECHNIQUE: Supine radiographic image of the abdomen acquired. LIMITATIONS: None. FINDINGS: BOWEL GAS PATTERN: Go abundant fecal material throughout nondilated colon. CALCIFICATIONS: No suspicious calcifications. SOFT TISSUES: No gross mass or suggestion of organomegaly. HARDWARE: None. BONES: No bone lesions or fracture. OTHER: No other significant finding. IMPRESSION: Fecal retention. Reading location - IP/workstation name: Unknown
--- NOTE | 2018-01-01 12:48 | RADIOLOGY REPORT (SQ) ---
EXAM DESCRIPTION: U/S ABDOMEN COMPLETE W/O DOP COMPLETED DATE/TIME: 01/01/2018 12:29 pm REASON FOR STUDY: abd pain near umbilicus COMPARISON: None. TECHNIQUE: Dynamic and static grayscale images acquired of the abdomen and recorded on PACS. Additio stormy selected color Doppler and spectral images recorded. LIMITATIONS: None. FINDINGS: PANCREAS: No masses. Visualized pancreatic duct normal caliber. LIVER: Fatty change. No masses. Old granulomatous disease. LIVER VASCULATURE: Normal directional flow of the main portal vein and hepatic veins. GALLBLADDER: No stones. Normal wall thickness. No pericholecystic fluid. ULTRASOUND-DETECTED BAR'S SIGN: Negative. INTRAHEPATIC DUCTS AND COMMON DUCT: CBD and intrahepatic ducts normal caliber. No filling defects. INFERIOR VENA CAVA: Normal flow. AORTA: No aneurysm. RIGHT KIDNEY: Normal size. Normal echogenicity. No solid or suspicious masses. No hydronephros is. No calcifications. LEFT KIDNEY: Normal size. Normal echogenicity. No solid or suspicious masses. No hydronephrosi s. No calcifications. SPLEEN: Normal size. No solid masses. PERITONEAL AND PLEURAL SPACES: No ascites or effusions. OTHER: No other significant finding. IMPRESSION: No acute findings. TECHNICAL DOCUMENTATION: JOB ID: [id number] [employer]- All Rights Reserved Reading location - IP/workstation name: Unknown
[2018-01-01 14:13] VITALS: BP 129/84
== END 2018-01-01 14:16 | disposition home or self-care (01) ==
LOC: ER 09:35
DX: K59.00 Constipation, unspecified (principal); R10.33 Periumbilical pain; C90.00 Multiple myeloma not having achieved remission; C79.89 Secondary malignant neoplasm of other specified sites; I10 Essential (primary) hypertension; Z79.891 Long term (current) use of opiate analgesic; Z79.899 Other long term (current) drug therapy; Z87.891 Personal history of nicotine dependence; Z88.0 Allergy status to penicillin
CPT/HCPCS: 99284; 96374; 36415; 83690; 85025; 80053; 81001; 74018; 76700; J2270

== ENCOUNTER 2018-10-05 16:21 | Emergency (ER) | payer MEDICARE ==
--- NOTE | 2018-10-05 17:27 | RADIOLOGY REPORT (SQ) ---
EXAM DESCRIPTION: HIP BILATERAL COMPLETED DATE/TIME: 10/05/2018 5:13 pm REASON FOR STUDY: Pain and injury COMPARISON: CT abdomen pelvis, 12/04/2017, radiographic bone survey, 09/14/2017 NUMBER OF VIEWS: Two views. TECHNIQUE: AP pelvis and additional frog-leg view of the right and left hip. LIMITATIONS: None. FINDINGS: MINERALIZATION: Diffusely abnormal mineralization with numerous, subtly appreciated lytic lesions of the included hips and pelvis. PRIMARY HIP: No fracture or dislocation. OPPOSITE HIP: No fracture or dislocation. PUBIS AND ISCHIUM: No fracture. PELVIS: No fracture. SACRUM: No fracture or dislocation. No worrisome bone lesions. LOWER LUMBAR SPINE: No fracture or dislocation. No worrisome bone lesions. No significant disc disea se. SOFT TISSUES: No findings. OTHER: No other significant finding. IMPRESSION: No displaced fracture or dislocation of the bilateral hips or pelvis. There is diffusel y abnormal mineralization with numerous subtly appreciated lytic lesions of the included hips and pel vis, better appreciated on prior CT. Recommend CT or MRI to more sensitively evaluate for pathologic fracture of the hips or pelvis in the setting of known advanced osseous malignancy if clinically tory pected. TECHNICAL DOCUMENTATION: JOB ID: [id number] [employer]- All Rights Reserved Reading location - IP/workstation name: [email or web address]
--- NOTE | 2018-10-05 18:14 | ER Document Report ---
ED Hip Pain/Injury - General Chief Complaint: Hip Pain Stated Complaint: PAIN IN HIP AND LEG Time Seen by Provider: 10/05/18 16:41 Primary Care Provider: SANDEEP POLANCO MD [Primary Care Provider] - Follow up as needed Information source: Patient Notes: Chief complaint: Left hip pain History of complain:( obtained from----patient) 72 years old male with a history of multiple myeloma with lytic lesions presents with left hip pain particularly over the sacral region. No fall or no injuries. Having difficulty in walking due to pain. Has been taking oxycodone 10 mg without much help. Sometimes pain radiates down the leg. Denies any weakness. Numbness tingling sensation Onset: As above Duration: Last few days Severity: Moderate to severe Quality: Sharp Context: Unknown Exacerbating factor and relieving factors: Walking and standing REVIEW OF SYSTEMS: CONSTITUTIONAL : Denies fever, chills, or sweats. Denies recent illness. EENT: Denies eye, ear, throat, or mouth pain or symptoms. Denies nasal or sinus congestion or discharge. Denies throat, tongue, or mouth swelling or difficulty swallowing. CARDIOVASCULAR: Denies chest pain. Denies palpitations or racing or irregular heart beat. Denies ankle edema. RESPIRATORY: Denies cough, cold, or chest congestion. Denies shortness of breath, difficulty breathing, or wheezing. GASTROINTESTINAL: Denies distention. Denies nausea, vomiting, or diarrhea. Denies blood in vomitus, stools, or per rectum. Denies black, tarry stools. Denies constipation. GENITOURINARY: Denies difficulty urinating, painful urination, burning, frequency, blood in urine, or discharge. FEMALE GENITOURINARY: Denies vaginal bleeding, heavy or abnormal periods, irregular humberto SKIN: Denies rash, lesions or sores. PSYCHIATRIC: Denies anxiety or stress. Denies depression, suicidal ideation, or homicidal ideation. ALL OTHER SYSTEMS REVIEWED AND NEGATIVE. PHYSICAL EXAMINATION: GENERAL: Elderly male seems to be in acute pain HEAD: Atraumatic, normocephalic. EYES: Pupils equal round and reactive to light, extraocular movements intact, conjunctiva are normal. ENT: Nares patent, oropharynx clear without exudates. Moist mucous membranes. NECK: supple without lymphadenopathy LUNGS: Breath sounds clear to auscultation bilaterally and equal. No wheezes rales or rhonchi. HEART: Regular rate and rhythm without murmurs ABDOMEN: Soft, nontender, nondistended abdomen. No guarding, no rebound. No masses appreciated. Examination of genitals-deferred Musculoskeletal: No obvious tender point was able to elicited over the left hip but close to piriform muscle is somewhat tender on palpation NEUROLOGICAL: Cranial nerves grossly intact. Normal speech, normal gait. Normal sensory, motor exams PSYCH: Normal mood, normal affect. SKIN: Warm, Dry, normal turgor, no rashes or lesions noted. Dictation was performed using [employer] voice recognition software TRAVEL OUTSIDE OF THE [place] IN LAST 30 DAYS: No - HPI Notes: Dictated - Related Data Allergies/Adverse Reactions: amoxicillin Allergy (Verified 10/05/18 16:54) Past Medical History - Social History Smoking Status: Former Smoker Frequency of alcohol use: None Drug Abuse: None Lives with: Family Family History: Reviewed & Not Pertinent, Hypertension Patient has suicidal ideation: No Patient has homicidal ideation: No - Past Medical History Cardiac Medical History: Reports: Hx Hypertension Renal/ Medical History: Denies: Hx Peritoneal Dialysis Past Surgical History: Reports: Other - BMBx - Immunizations Hx Diphtheria, Pertussis, Tetanus Vaccination: Yes Review of Systems - Review of Systems Notes: Dictated Physical Exam - Vital signs Vitals: Temp Pulse Resp BP Pulse Ox 98.0 F 93 14 136/82 H 98 10/05/18 16:26 10/05/18 16:26 10/05/18 16:26 10/05/18 16:26 10/05/18 16:26 - Notes Notes: Dictated Course - Vital Signs Vital signs: Temp Pulse Resp BP Pulse Ox 98.0 F 93 14 136/82 H 98 10/05/18 16:26 10/05/18 16:26 10/05/18 16:26 10/05/18 16:26 10/05/18 16:26 - Diagnostic Test Radiology reviewed: Reports reviewed - X-ray of the hip reported by radiologist as multiple lytic lesions but no obvious fracture Discharge - Discharge Clinical Impression: Left hip pain Multiple myeloma Qualifiers: Multiple myeloma remission status: not in remission Qualified Code(s): C90.00 - Multiple myeloma not having achieved remission Condition: Fair Disposition: HOME, SELF-CARE Instructions: Sprain ([facility]) Prescriptions: Diazepam [Valium 2 mg Tablet] 2 mg PO Q6HP PRN #15 tablet PRN Reason: Referrals: SANDEEP POLANCO MD [Primary Care Provider] - Follow up as needed
[2018-10-05 18:34] VITALS: BP 150/85
== END 2018-10-05 18:34 | disposition home or self-care (01) ==
LOC: ER 16:21
DX: M25.552 Pain in left hip (principal); C90.00 Multiple myeloma not having achieved remission; I10 Essential (primary) hypertension; Z88.0 Allergy status to penicillin; Z87.891 Personal history of nicotine dependence
CPT/HCPCS: 73522; 99283

== ENCOUNTER → 2018-12-26 | Outpatient (CLI) | payer MEDICARE ==
--- NOTE | 2018-12-27 10:16 | RADIOLOGY REPORT (SQ) ---
EXAM DESCRIPTION: PET CT WHOLE BODY COMPLETED DATE/TIME: 12/27/2018 9:19 am REASON FOR STUDY: C90.00 MULTIPLE MYELOMA NOT HAVING ACHIEVED REMISSION C90.00 MULTIPLE MYELOMA NOT HAVING ACHIEVED REMISSION COMPARISON: None. RADIONUCLIDE AND DOSE: 10.39 mCi F18 FDG The route of agent administration: Intravenous FASTING BLOOD SUGAR: 95 mg/dl CONTRAST TYPE AND DOSE: No CT contrast given. TECHNIQUE: Blood glucose level was verified. Above dose of FDG was injected intravenously. 2-D seg mented attenuation correction images were obtained through the entire body. Noncontrast CT images we re obtained for attenuation correction and fusion with emission images. CT images were performed wit hout oral or intravenous contrast and are not sensitive for parenchymal lesions. A series of overlap ping emission PET images were obtained. Images reviewed and manipulated at independent work station by the radiologist. Images stored on PACS. LIMITATIONS: None. FINDINGS: HEAD AND NECK: No areas of abnormal metabolic activity in the soft tissues of the head and neck. CHEST: No areas of abnormal metabolic activity in the chest. ABDOMEN AND PELVIS: 3 hypermetabolic retroperitoneal nodes, the largest 1.5 cm and 7.0 SUV. LOWER EXTREMITIES: No areas of abnormal metabolic activity in the soft tissues of the lower extremiti es. BONES: Hypermetabolic lytic lesion right proximal humerus 9.1 SUV. Hypermetabolic lesion left humeral shaft 3.6 SUV. Hypermetabolic lesion left femoral shaft 9.6 SUV. Innumerable lytic lesions in the axial skeleton with SUVs in the 2.[address] FINDINGS: No additional significant findings on the noncontrast CT images. OTHER: Blood pool 1.9 SUV, liver background 2.3 SUV. IMPRESSION: Hypermetabolic bone lesions. Hypermetabolic retroperitoneal nodes. TECHNICAL DOCUMENTATION: JOB ID: [id number] [employer] All Rights Reserved Reading location - IP/workstation name: [email or web address]
== END ==
LOC: RAD 16:38
PROVIDERS: ATTEND Internal Medicine Hematology & Oncology
DX: C90.00 Multiple myeloma not having achieved remission (principal)
CPT/HCPCS: 78816; A9552

== ENCOUNTER 2019-01-19 11:03 | Day surgery (SDC) | payer MEDICARE ==
[2019-01-19 12:31] LABS: HEMATOCRIT 29.3 % (37.9-51.0); HEMOGLOBIN 9.7 g/dL (13.5-17.0); MEAN CORPUSCULAR HEMOGLOBIN 28.7 pg (27.0-33.4); MEAN CORPUSCULAR HGB CONC 33.2 g/dL (32.0-36.0); MEAN CORPUSCULAR VOLUME 86 fl (80-97); PLATELET COUNT 161 10^3/uL (150-450); RED BLOOD COUNT 3.39 10^6/uL (4.35-5.55); RED CELL DISTRIBUTION WIDTH 15.2 % (11.5-14.0); WHITE BLOOD COUNT 4.6 10^3/uL (4.0-10.5)
[2019-01-19 12:37] LABS: INTERNATIONAL RATION (INR) 1.06; PROTHROMBIN TIME 14.4 SEC (11.4-15.4)
[2019-01-19 12:38] LABS: PARTIAL THROMBOPLASTIN TIME 30.8 SEC (23.5-35.8)
[2019-01-19 13:14] LABS: BLOOD UREA NITROGEN 40 mg/dL (7-20)
[2019-01-19] MEDS ORDERED: MIDAZOLAM 2 MG/2 ML INJ ONE (13:16)
[2019-01-19] MEDS ORDERED: FENTANYL CITRATE INJ/PF 100 MCG/2 ML AMPUL ONE (13:16)
--- NOTE | 2019-01-19 16:17 | RADIOLOGY REPORT (SQ) ---
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 TECHNIQUE: CT guided biopsy of the left femoral diaphysis performed with conscious sedation. CT Fluoroscopy Time: 21.[address] scanners at this facility use dose modulation, iterative reconstruction, and/or weight based d osing when appropriate to reduce radiation dose to as low as reasonably achievable (ALARA). [facility]: Dose Right [facility]: CareDose [facility]: Dose Right [facility]: Teradose 4D [facility]: [employer]Data RADIATION DOSE: CT Rad equipment meets quality standard of care and radiation dose reduction techniq ues were employed. CTDIvol: 4.0 - 11.4 mGy. DLP: 352 mGy-cm. mGy. FINDINGS: After obtaining informed consent and explaining the risks and benefits of conscious sedati on,the patient agreed to the procedure. Prior to the procedure, a time out was performed to verify th e patient's identity and planned procedure. IV sedation was administered and physician direction by the registered nurse using 1 milligrams of Ve rsed and 100 micrograms of fentanyl, for conscious sedation. Physiologic monitoring was provided befo re, during, and after sedation. The total sedation time was 30 minutes. Documentation face to face time, the performing proceduralist, spent monitoring the patient: [address] scanning was performed to localize the percutaneous site for the biopsy approach. After sterile skin prep and local lidocaine for skin and deep tissue anesthesia, a coaxia bone l biop sy needle was advanced to the expected location of the region of hypermetabolic activity seen on prio r PET within the left proximal femoral diaphysis. Multiple core bone biopsies were obtained and posi tion confirmed with limited CT fluoroscopy imaging. Additional 18 gauge core biopsies were obtained of the region and bone marrow aspirates. The samples were placed in the appropriate solution and sen t to the lab for analysis. Following biopsy the needle introducer was removed and hemostasis achieved with manual compression. Patient tolerated procedure well left the CT suite stable condition. Pathology is pending at the time of dictation. IMPRESSION: CT fluoroscopy guided biopsy of the left proximal femoral diaphysis lytic lesion as deta iled above. Pathology pending. COMMENT: Quality ID 145: Final reports for procedures using fluoroscopy that document radiation exp osure indices, or exposure time and number of fluorographic images (if radiation exposure indices are not available) Patient medication list reviewed: Yes- Quality ID# [id number]:Eligible professional attests to documenting i n the medical record they obtained, updated, or reviewed the patient's current medications.. TECHNICAL DOCUMENTATION: JOB ID: [id number] Quality ID# [id number]: Final reports with documentation of one or more dose reduction techniques (e.g., Aut omated exposure control, adjustment of the mA and/or kV according to patient size, use of iterative r econstruction technique) 2010 [employer]- All Rights Reserved Reading location - IP/workstation name: [email or web address]
--- NOTE | 2019-01-19 16:17 | RADIOLOGY REPORT (SQ) ---
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 TECHNIQUE: CT guided biopsy of the left femoral diaphysis performed with conscious sedation. CT Fluoroscopy Time: 21.[address] scanners at this facility use dose modulation, iterative reconstruction, and/or weight based d osing when appropriate to reduce radiation dose to as low as reasonably achievable (ALARA). [facility]: Dose Right [facility]: CareDose [facility]: Dose Right [facility]: Teradose 4D [facility]: [employer]id RADIATION DOSE: CT Rad equipment meets quality standard of care and radiation dose reduction techniq ues were employed. CTDIvol: 4.0 - 11.4 mGy. DLP: 352 mGy-cm. mGy. FINDINGS: After obtaining informed consent and explaining the risks and benefits of conscious sedati on,the patient agreed to the procedure. Prior to the procedure, a time out was performed to verify th e patient's identity and planned procedure. IV sedation was administered and physician direction by the registered nurse using 1 milligrams of Ve rsed and 100 micrograms of fentanyl, for conscious sedation. Physiologic monitoring was provided befo re, during, and after sedation. The total sedation time was 30 minutes. Documentation face to face time, the performing proceduralist, spent monitoring the patient: [address] scanning was performed to localize the percutaneous site for the biopsy approach. After sterile skin prep and local lidocaine for skin and deep tissue anesthesia, a coaxia bone l biop sy needle was advanced to the expected location of the region of hypermetabolic activity seen on prio r PET within the left proximal femoral diaphysis. Multiple core bone biopsies were obtained and posi tion confirmed with limited CT fluoroscopy imaging. Additional 18 gauge core biopsies were obtained of the region and bone marrow aspirates. The samples were placed in the appropriate solution and sen t to the lab for analysis. Following biopsy the needle introducer was removed and hemostasis achieved with manual compression. Patient tolerated procedure well left the CT suite stable condition. Pathology is pending at the time of dictation. IMPRESSION: CT fluoroscopy guided biopsy of the left proximal femoral diaphysis lytic lesion as deta iled above. Pathology pending. COMMENT: Quality ID 145: Final reports for procedures using fluoroscopy that document radiation exp osure indices, or exposure time and number of fluorographic images (if radiation exposure indices are not available) Patient medication list reviewed: Yes- Quality ID# [id number]:Eligible professional attests to documenting i n the medical record they obtained, updated, or reviewed the patient's current medications.. TECHNICAL DOCUMENTATION: JOB ID: [id number] Quality ID# [id number]: Final reports with documentation of one or more dose reduction techniques (e.g., Aut omated exposure control, adjustment of the mA and/or kV according to patient size, use of iterative r econstruction technique) 2010 [employer]- All Rights Reserved Reading location - IP/workstation name: [email or web address]
[2019-01-19 16:52] VITALS: BP 153/91
== END 2019-01-19 16:35 | disposition home or self-care (01) ==
LOC: RAD 11:03
PROVIDERS: ATTEND Internal Medicine Hematology & Oncology
DX: C90.00 Multiple myeloma not having achieved remission (principal); I10 Essential (primary) hypertension; I82.412 Acute embolism and thrombosis of left femoral vein; Z79.899 Other long term (current) drug therapy; Z79.82 Long term (current) use of aspirin; Z88.5 Allergy status to narcotic agent; Z88.0 Allergy status to penicillin
CPT/HCPCS: 36415; 84520; 82565; 85027; 85610; 85730; 88305 ×2; 77012; 20225; J2250; J3010; 88311

== ENCOUNTER 2019-02-28 09:51 | Inpatient (IN) | payer OTHER, MEDICARE ==
--- NOTE | 2019-02-28 10:26 | ER Document Report ---
ED Medical Screen (RME) - General Chief Complaint: Leg Swelling Stated Complaint: LEFT LEG PAIN Time Seen by Provider: 02/28/19 10:24 Mode of Arrival: Ambulatory Information source: Patient Notes: 73-year-old male presents to ED for complaint of blood clots in the left leg. He went to his oncologist for his multiple myeloma and was diagnosed with blood clots in the left groin. He says he has a disc of the Doppler that was done. He states he has been complaining of the pain and swelling in his left leg for a while and they finally did the Doppler. Patient is alert oriented respirations regular and unlabored but does have swelling to the left leg. I have greeted and performed a rapid initial assessment of this patient. A comprehensive ED assessment and evaluation of the patient, analysis of test results and completion of medical decision making process will be conducted by an additional ED providers. Dictation of this chart was performed using voice recognition software; therefore, there may be some unintended grammatical errors. TRAVEL OUTSIDE OF THE [place] IN LAST 30 DAYS: No - Related Data Allergies/Adverse Reactions: amoxicillin Allergy (Verified 02/28/19 09:58) Past Medical History - Social History Chew tobacco use (# tins/day): No Drug Abuse: None - Past Medical History Cardiac Medical History: Reports: Hx Hypertension Denies: Hx Coronary Artery Disease, Hx Heart Attack Pulmonary Medical History: Denies: Hx Asthma, Hx Bronchitis, Hx COPD, Hx Pneumonia Neurological Medical History: Denies: Hx Cerebrovascular Accident, Hx Seizures Renal/ Medical History: Denies: Hx Peritoneal Dialysis Musculoskeltal Medical History: Reports Hx Arthritis Past Surgical History: Reports: Other - BMBx - Immunizations Hx Diphtheria, Pertussis, Tetanus Vaccination: Yes History of Influenza Vaccine for 05/2017 - 10/2017 Season: Yes Influenza Administration Date for 05/2017 - 10/2017 Season: 07/24/18 Physical Exam - Vital signs Vitals: Temp Pulse Resp BP Pulse Ox 98.2 F 62 18 164/88 H 100 02/28/19 10:02/28/19 10:02/28/19 10:02/28/19 10:02/28/19 10:19 Course - Vital Signs Vital signs: Temp Pulse Resp BP Pulse Ox 98.2 F 62 18 164/88 H 100 02/28/19 10:02/28/19 10:19 02/28/19 10:19 02/28/19 10:19 02/28/19 10:19
[2019-02-28 10:49] LABS: ABSOLUTE EOSINOPHILS # (AUTO) 0.2 10^3/uL (0.0-0.6); ABSOLUTE LYMPHOCYTES (AUTO) 0.9 10^3/uL (0.5-4.7); ABSOLUTE MONOCYTES (AUTO) 0.5 10^3/uL (0.1-1.4); BASOPHILS % (AUTO) 0.7 % (0-2); EOSINOPHILS % (AUTO) 3.7 % (0-6); HEMATOCRIT 32.8 % (37.9-51.0); HEMOGLOBIN 10.9 g/dL (13.5-17.0); LYMPHOCYTES % (AUTO) 15.8 % (13-45); MEAN CORPUSCULAR HEMOGLOBIN 28.9 pg (27.0-33.4); MEAN CORPUSCULAR HGB CONC 33.3 g/dL (32.0-36.0); MEAN CORPUSCULAR VOLUME 87 fl (80-97); MONOCYTES % (AUTO) 8.4 % (3-13); PLATELET COUNT 192 10^3/uL (150-450); RED BLOOD COUNT 3.77 10^6/uL (4.35-5.55); RED CELL DISTRIBUTION WIDTH 15.2 % (11.5-14.0); SEGMENTED NEUTROPHILS % (AUTO) 71.4 % (42-78); TOTAL CELLS COUNTED % (AUTO) 100 %; WHITE BLOOD COUNT 5.6 10^3/uL (4.0-10.5)
[2019-02-28 10:55] LABS: INTERNATIONAL RATION (INR) 1.07; PARTIAL THROMBOPLASTIN TIME 26.4 SEC (23.5-35.8); PROTHROMBIN TIME 13.9 SEC (11.4-15.4)
[2019-02-28 11:04] LABS: APPEARANCE,URINE CLEAR; BILIRUBIN,URINE NEGATIVE (NEGATIVE); COLOR,URINE STRAW; GLUCOSE, URINE NEGATIVE (NEGATIVE); KETONES,URINE NEGATIVE (NEGATIVE); LEUKOCYTE ESTERASE,URINE NEGATIVE (NEGATIVE); PROTEIN,URINE NEGATIVE (NEGATIVE); URINE SPECIFIC GRAVITY 1.015; UROBILINOGEN,URINE NEGATIVE mg/dL (<2.0)
[2019-02-28 11:05] LABS: NITRITE,URINE NEGATIVE (NEGATIVE)
[2019-02-28 11:16] LABS: ALANINE AMINOTRANSFERASE 31 U/L (21-72); ALBUMIN 4.4 g/dL (3.5-5.0); ALKALINE PHOSPHATASE 54 U/L (38-126); ANION GAP 9 (5-19); ASPARTATE AMINO TRANSFERASE 36 U/L (17-59); BILIRUBIN,DIRECT 0.3 mg/dL (0.0-0.4); BILIRUBIN,TOTAL 0.5 mg/dL (0.2-1.3); BLOOD UREA NITROGEN 27 mg/dL (7-20); CALCIUM 9.8 mg/dL (8.4-10.2); CARBON DIOXIDE 23 mmol/L (22-30); CHLORIDE 108 mmol/L (98-107); GLUCOSE 98 mg/dL (75-110); POTASSIUM 4.4 mmol/L (3.6-5.0); TOTAL PROTEIN 7.3 g/dL (6.3-8.2)
--- NOTE | 2019-02-28 12:10 | RADIOLOGY REPORT (SQ) ---
EXAM DESCRIPTION: VENOUS UNILATERAL LOWER COMPLETED DATE/TIME: 02/28/2019 11:57 am REASON FOR STUDY: Blood clots left groin COMPARISON: None. TECHNIQUE: Dynamic and static araya scale and color images acquired of the left leg venous system. Se lected spectral images acquired with additional compression and augmentation maneuvers. The contralat eral common femoral vein and saphenofemoral junction were also imaged. Images stored on PACS. LIMITATIONS: None. FINDINGS: COMMON FEMORAL: Acute thrombus throughout FEMORAL: Acute thrombus throughout POPLITEAL: Acute thrombus throughout CALF VESSELS: Acute thrombus throughout GSV and SSV: Normal compression, augmentation. No visualized echogenic material on araya scale. No def ects on color images. ANY DEEP VENOUS INSUFFICIENCY: Not evaluated. ANY EVIDENCE OF POPLITEAL CYST: No. OTHER: No other significant finding. CONTRALATERAL COMMON FEMORAL VEIN AND SAPHENOFEMORAL JUNCTION: Normal phasicity, compression and augmentation. No visualized echogenic material on araya scale. No de fects on color images. IMPRESSION: Generalize acute thrombus throughout the entire left deep venous system. COMMENT: The findings were sent to the Radiology Results Communication Center at 12:03 on 02/28/2019 to be communicated to a licensed caregiver. TECHNICAL DOCUMENTATION: JOB ID: [id number] [employer]- All Rights Reserved Reading location - IP/workstation name: [email or web address]
--- NOTE | 2019-02-28 14:34 | ER Document Report ---
HPI - HPI Patient complains to provider of: left leg pain Time Seen by Provider: 02/28/19 10:24 Onset/Duration: Gradual Quality of pain: Achy Severity: Mild Pain Level: 2 Context: 73 yr old male with the listed pmh to include multiple myeloma here for left leg pain x 6mths or more. worse recently. no numbness or tingling. no surgeries on this leg. pt able to walk. was told by pcp to come in to make sure he didn't have a blood clot a while ago per pt however pt finally decided to get it checked out tonight. no right leg sx. no back pain. no saddle anesthesia, weak ness, or incontinence. otc meds controlling pain. no cp or sob. no other associated sx. no blood thinners unless otherwise noted. no prior hx of blood clots. pt lives at home with his elderly also and takes care of her as well. Associated Symptoms: None Exacerbated by: Movement Relieved by: Remaining still - ROS Systems Reviewed and Negative: Yes All other systems reviewed and negative - DERM Skin Color: Normal Past Medical History - General Information source: Patient - Social History Smoking Status: Former Smoker Chew tobacco use (# tins/day): No Frequency of alcohol use: unknown Drug Abuse: None Lives with: Spouse/Significant other Family History: Reviewed & Not Pertinent, Hypertension Patient has suicidal ideation: No Patient has homicidal ideation: No - Past Medical History Cardiac Medical History: Reports: Hx Hypertension Denies: Hx Coronary Artery Disease, Hx Heart Attack Pulmonary Medical History: Denies: Hx Asthma, Hx Bronchitis, Hx COPD, Hx Pneumonia Neurological Medical History: Denies: Hx Cerebrovascular Accident, Hx Seizures Renal/ Medical History: Denies: Hx Peritoneal Dialysis Malignancy Medical History: Reports Other - multiple myeloma Musculoskeletal Medical History: Reports Hx Arthritis Past Surgical History: Reports: Other - Bone marrow biopsy - Immunizations Immunizations up to date: Yes Hx Diphtheria, Pertussis, Tetanus Vaccination: Yes Vertical Provider Document - CONSTITUTIONAL Notes: >>>> PHYSICAL_EXAM: GENERAL_APPEARANCE: well_nourished, alert, cooperative, no_acute_distress, no_obvious_discomfort. pleasant, elderly white male, smiling, speaking in full sentences, in no sign of pain or resp distress, no one is with him VITALS: reviewed, see vital signs table. HEAD: no_swelling\tenderness on the head. normocephalic. atraumatic. no ryan signs. no raccoons eyes. EYES: PERRL, EOMI, conjunctiva_clear. no scleral icterus NOSE: no_nasal_discharge. MOUTH: (-)decreased moisture. THROAT: no_tonsilar_inflammation/hypertrophy/exudate/thrush, no_airway_obstruction. no_lymphadenopathy. NECK: supple, no_neck_tenderness, full rom. full strength. no jvd. no carotid bruit. no meningeal signs. no sign of central cord syndrome. BACK: no_back_tenderness. CHEST_WALL: no_chest_tenderness. no overlying skin changes LUNGS: no_wheezing, ctab (-)accessory muscle use, good air exchange bilateral. HEART: normal_rate, normal_rhythm, ABDOMEN: normal_BS, soft, no_abd_tenderness, (-)guarding, (-)rebound, no distension or peritoneal signs. no cva ttp GENITALIA: deferred EXTREMITIES: strength 5/5 in all_extremities, good pulses in all_extremities, no_swelling\tenderness in the extremities other than mild diffuse ttp over the entire left leg which is without any deformity or sign of trauma. it is normotensive. dp and pt pulses intact, normal color. no sign of cellulitis. neg iftikhar sign. no sign of compartment syndrome, septic jt, gout, cellulitis, or col d leg, no_edema. full rom. normal gait. good pulses. brisk cap refill. good hand hand bander. NEURO: motor and sensation intact, cranial nerves 2-12 intact, cerebellar fxn intact SKIN: warm, dry, good_color, no_rash. no grossly visible overlying skin changes to suggest trauma. MENTAL_STATUS: speech_clear, oriented_X_3, normal_affect, responds_appropriately to questions. - INFECTION CONTROL TRAVEL OUTSIDE OF THE [place] IN LAST 30 DAYS: No Course - Re-evaluation Re-evalutation: 02/28/19 15:24 73-year-old male with a history of multiple myeloma here for left leg pain x a few months. His labs are notable for mild chronic anemia and chronic renal disease. His INR is 1. He has no prior history of DVTs or PEs. He has no respiratory symptoms. no cp. Vital signs are stable. His left lower extremity Doppler ultrasound did show extensive thrombus pretty much throughout the entire deep venous system per radiology and read by myself. Patient informed of his findings. He was agreeable to be admitted for anticoagulation. [facility] I did discuss case the hospitalist, Dr. Hicks, who graciously agreed to accept patient to their servi ce and came down to the ER to evaluate the patient. Care transferred to hospitalist in stable condition. Please refer to their note for further details of the visit. ++I independently evaluated this patient. pt discussed with ed attending dr william, who directed and agrees with plan of care++Documentation achieved through voice recording which may despite best efforts include some typographic al errors++ On reexam, pt remained stable. nontoxic. vss. well appearing. neurononfocal. good pulses through out the extremity and extremity is of normotemperature. 02/28/19 15:28 Category Date Time Status VENOUS UNILATERAL LOWER [CARDIO] Stat Cardiology 02/28/19 10:26 Completed Saline Lock (ED) NOW Care 02/28/19 10:24 Active CBC WITH DIFF [HEME] Stat Lab 02/28/19 10:40 Completed COMPREHENSIVE METABOLIC PANEL [CHEM] Stat Lab 02/28/19 10:40 Completed PARTIAL THROMBOPLASTIN TIME [COAG] Stat Lab 02/28/19 10:40 Completed PROTHROMBIN TIME/INR [COAG] Stat Lab 02/28/19 10:40 Completed URINALYSIS [URIN] Stat Lab 02/28/19 10:40 Completed Labs- Entire Visit 02/28/19 02/28/19 02/28/19 10:40 10:40 10:40 WBC 5.6 RBC 3.77 L Hgb 10.9 L Hct 32.8 L MCV 87 MCH 28.9 MCHC 33.3 RDW 15.2 H Plt Count 192 Seg Neutrophils % 71.4 Lymphocytes % 15.8 Monocytes % 8.4 Eosinophils % 3.7 Basophils % 0.7 Absolute Neutrophils 4.0 Absolute Lymphocytes 0.9 Absolute Monocytes 0.5 Absolute Eosinophils 0.2 Absolute Basophils 0.0 PT 13.9 INR 1.07 APTT 26.4 Sodium 140.0 Potassium 4.4 Chloride 108 H Carbon Dioxide 23 Anion Gap 9 BUN 27 H Creatinine 2.25 H Est GFR ( Amer) 35 L Est GFR (Non-Af Amer) 29 L Glucose 98 Calcium 9.8 Total Bilirubin 0.5 Direct Bilirubin 0.3 Neonat Total Bilirubin Not Reportable Neonat Direct Bilirubin Not Reportable Neonat Indirect Bili Not Reportable AST 36 ALT 31 Alkaline Phosphatase 54 Total Protein 7.3 Albumin 4.4 Urine Color Urine Appearance Urine pH Ur Specific [place] Urine Protein Urine Glucose (UA) Urine Ketones Urine Blood Urine Nitrite Urine Bilirubin Urine Urobilinogen Ur Leukocyte Esterase Urine WBC (Auto) Urine RBC (Auto) Urine Mucus (Auto) Urine Ascorbic Acid 02/28/19 10:40 WBC RBC Hgb Hct MCV MCH MCHC RDW Plt Count Seg Neutrophils % Lymphocytes % Monocytes % Eosinophils % Basophils % Absolute Neutrophils Absolute Lymphocytes Absolute Monocytes Absolute Eosinophils Absolute Basophils PT INR APTT Sodium Potassium Chloride Carbon Dioxide Anion Gap BUN Creatinine Est GFR ( Amer) Est GFR (Non-Af Amer) Glucose Calcium Total Bilirubin Direct Bilirubin Neonat Total Bilirubin Neonat Direct Bilirubin Neonat Indirect Bili AST ALT Alkaline Phosphatase Total Protein Albumin Urine Color STRAW Urine Appearance CLEAR Urine pH 5.0 Ur Specific [place] 1.015 Urine Protein NEGATIVE Urine Glucose (UA) NEGATIVE Urine Ketones NEGATIVE Urine Blood NEGATIVE Urine Nitrite NEGATIVE Urine Bilirubin NEGATIVE Urine Urobilinogen NEGATIVE Ur Leukocyte Esterase NEGATIVE Urine WBC (Auto) 1 Urine RBC (Auto) 1 Urine Mucus (Auto) RARE Urine Ascorbic Acid NEGATIVE 03/02/19 04:26 - Vital Signs Vital signs: Temp Pulse Resp BP Pulse Ox 98.2 F 62 17 162/86 H 96 02/28/19 10:19 02/28/19 10:19 02/28/19 14:01 02/28/19 14:01 02/28/19 14:01 - Laboratory Result Diagrams: 03/01/19 03:27 03/01/19 03:27 Laboratory results interpreted by me: 02/28/19 02/28/19 10:40 10:40 RBC 3.77 L Hgb 10.9 L Hct 32.8 L RDW 15.2 H Chloride 108 H BUN 27 H Creatinine 2.25 H Est GFR ( Amer) 35 L Est GFR (Non-Af Amer) 29 L - Diagnostic Test Radiology reviewed: Image reviewed, Reports reviewed Radiology results interpreted by me: 02/28/19 15:28 Venous Doppler Study 02/28/19 10:26 IMPRESSION: Generalize acute thrombus throughout the entire left deep venous system. - Consults mannava Time consulted: 15:20 - LLE DVT, history of MM, elderly Reason for consultation: 03/02/19 04:30 lle extensive dvt in an elderly pt with ca hx who lives at home Consulted provider: will come to ER Discharge - Discharge Clinical Impression: Chronic anemia Acute deep vein thrombosis (DVT) of left lower extremity Qualifiers: Affected thrombotic vein of extremity: unspecified vein of extremity Qualified Code(s): I82.402 - Acute embolism and thrombosis of unspecified deep veins of left lower extremity Chronic renal disease Qualifiers: Chronic kidney disease stage: unspecified stage Qualified Code(s): N18.9 - Chronic kidney disease, unspecified Condition: Fair Disposition: ADMITTED INPATIENT Admitting Provider: Fabiola (Hospitalist) - consulted with at 3:20p who agreed to accept the pt to their service and stated he will come down to the ed to ky boykin the pt Unit Admitted: [facility]
[2019-02-28] MEDS ORDERED: ONDANSETRON HCL INJ/PF 4 MG/2 ML SDV IV PRN (15:33)
[2019-02-28] MEDS ORDERED: ACETAMINOPHEN 325 MG TABLET PO PRN (15:33)
--- NOTE | 2019-02-28 17:02 | PDOC H&P ---
History of Present Illness Admission Date/PCP: 02/28/19 15:51 [place] [facility] Patient complains of: Left lower leg pain and swelling History of Present Illness: BRIDGER RITCHIE is a 73 year old male with history of multiple myeloma follow- up with Dr. ayala came to the emergency room with complaints of left lower leg pain for several months. He went to the pain management clinic they told him to come to the emergency room for further evaluation. Denies any chest pains shortness of breath. Vital signs are stable in the ER. Past Medical History Cardiac Medical History: Reports: Hypertension Denies: Coronary Artery Disease, Myocardial Infarction Pulmonary Medical History: Denies: Asthma, Bronchitis, Chronic Obstructive Pulmonary Disease (COPD), Pneumonia Neurological Medical History: Denies: Seizures Musculoskeltal Medical History: Reports: Arthritis Hematology: Denies: Anemia Past Surgical History Past Surgical History: Reports: Other - BMBx Social History Information Source: Patient Smoking Status: Former Smoker Frequency of Alcohol Use: None Hx Recreational Drug Use: No Drugs: None Hx Prescription Drug Abuse: No - Advance Directive Resuscitation Status: Full Code Family History Family History: Reviewed & Not Pertinent, Hypertension Parental Family History Reviewed: Yes - cancer Children Family History Reviewed: Yes Sibling(s) Family History Reviewed.: Yes Medication/Allergy Allergies/Adverse Reactions: amoxicillin Allergy (Verified 02/28/19 09:58) Review of Systems Constitutional: ABSENT: fever(s), headache(s) Eyes: ABSENT: visual disturbances Ears: ABSENT: hearing changes Nose, Mouth, and Throat: ABSENT: sore throat Cardiovascular: ABSENT: edema, orthropnea, palpitations Respiratory: ABSENT: dyspnea, hemoptysis Musculoskeletal: PRESENT: other - Complaining of left lower leg swelling and tobias n. ABSENT: joint swelling Integumentary: ABSENT: rash, wounds Neurological: ABSENT: abnormal gait, abnormal speech, confusion, dizziness, focal weakness, syncope Psychiatric: ABSENT: anxiety, depression, homidical ideation, suicidal ideation Physical Exam Vital Signs: Temp Pulse Resp BP Pulse Ox 98.2 F 62 17 153/81 H 95 02/28/19 10:19 02/28/19 10:19 02/28/19 14:46 02/28/19 14:46 02/28/19 14:46 Intake & Output 02/27/19 02/28/19 03/01/19 06:59 06:59 06:59 Weight 87.5 kg General appearance: PRESENT: no acute distress Head exam: PRESENT: atraumatic Eye exam: PRESENT: PERRLA Mouth exam: PRESENT: moist, tongue midline Teeth exam: PRESENT: poor dentation Neck exam: ABSENT: carotid bruit, JVD, lymphadenopathy, thyromegaly Respiratory exam: PRESENT: decreased breath sounds Cardiovascular exam: PRESENT: RRR. ABSENT: diastolic murmur, rubs, systolic murmur GI/Abdominal exam: PRESENT: normal bowel sounds, soft. ABSENT: distended, guarding, mass, organolmegaly, rebound, tenderness Rectal exam: PRESENT: deferred Extremities exam: PRESENT: other - Left lower leg is not swollen but complaining of pain all the way up to the hip. Neurological exam: PRESENT: alert, awake, oriented to person, oriented to place, oriented to time, oriented to situation, CN II-XII grossly intact. ABSENT: motor sensory deficit Psychiatric exam: PRESENT: appropriate affect, normal mood. ABSENT: homicidal ideation, suicidal ideation Results Laboratory Results: 02/28/19 10:40 02/28/19 10:40 02/28/19 02/28/19 02/28/19 10:40 10:40 10:40 WBC 5.6 RBC 3.77 L Hgb 10.9 L Hct 32.8 L MCV 87 MCH 28.9 MCHC 33.3 RDW 15.2 H Plt Count 192 Seg Neutrophils % 71.4 Lymphocytes % 15.8 Monocytes % 8.4 Eosinophils % 3.7 Basophils % 0.7 Absolute Neutrophils 4.0 Absolute Lymphocytes 0.9 Absolute Monocytes 0.5 Absolute Eosinophils 0.2 Absolute Basophils 0.0 Sodium 140.0 Potassium 4.4 Chloride 108 H Carbon Dioxide 23 Anion Gap 9 BUN 27 H Creatinine 2.25 H Est GFR ( Amer) 35 L Est GFR (Non-Af Amer) 29 L Glucose 98 Calcium 9.8 Total Bilirubin 0.5 AST 36 ALT 31 Alkaline Phosphatase 54 Total Protein 7.3 Albumin 4.4 Urine Color STRAW Urine Appearance CLEAR Urine pH 5.0 Ur Specific [place] 1.015 Urine Protein NEGATIVE Urine Glucose (UA) NEGATIVE Urine Ketones NEGATIVE Urine Blood NEGATIVE Urine Nitrite NEGATIVE Ur Leukocyte Esterase NEGATIVE Urine WBC (Auto) 1 Urine RBC (Auto) 1 Impressions: Venous Doppler Study 02/28/19 10:26 IMPRESSION: Generalize acute thrombus throughout the entire left deep venous system. Assessment and Plan - Diagnosis (1) Acute deep vein thrombosis (DVT) of left lower extremity Qualifiers: Affected thrombotic vein of extremity: unspecified vein of extremity Qualified Code(s): I82.402 - Acute embolism and thrombosis of unspecified deep veins of left lower extremity Is this a current diagnosis for this admission?: Yes Plan: 02/28/[id number]-[id number]-old male with history of multiple myeloma came to the emergency room with complaints of left lower leg pain and swelling 2+ now IMCU start on Xarelto 15 mg p.o. twice daily GI prophylaxis was initiated his home medications are resumed VQ scan is going to be requested because his creatinine was 2.25. (2) Chronic renal disease Qualifiers: Chronic kidney disease stage: unspecified stage Qualified Code(s): N18.9 - Chronic kidney disease, unspecified Is this a current diagnosis for this admission?: No Plan: 02/28/2019-patient has history of chronic kidney disease today's creatinine 2.252 months ago creatinine is 2.3 at baseline. We will continue to watch his creatinine on regular basis. - Time Time Spent with patient: 15-24 minutes Medications reviewed and adjusted accordingly: Yes Anticipated discharge: Home
[2019-02-28 17:16] LABS: CREATINE KINASE MB 2.64 ng/mL (<4.55)
[2019-02-28 17:18] LABS: TROPONIN I < 0.012 ng/mL
[2019-02-28] MEDS: RIVAROXABAN 15 MG TABLET PO SCH (18:29)
[2019-02-28] MEDS: PANTOPRAZOLE SODIUM 40 MG TABLET.DR PO SCH (18:29)
[2019-02-28] MEDS ORDERED: INSULIN GLARGINE,HUM.REC.ANLOG 1,000 UNIT/10 ML VIAL SUBCUT SCH (22:00)
[2019-02-28 22:21] LABS: CREATINE KINASE MB 1.65 ng/mL (<4.55)
[2019-02-28 22:28] LABS: TROPONIN I < 0.012 ng/mL
[2019-03-01] MEDS ORDERED: OXYCODONE HCL IR 5 MG TABLET PO PRN (02:10)
[2019-03-01 03:37] LABS: ABSOLUTE EOSINOPHILS # (AUTO) 0.2 10^3/uL (0.0-0.6); ABSOLUTE LYMPHOCYTES (AUTO) 0.7 10^3/uL (0.5-4.7); ABSOLUTE MONOCYTES (AUTO) 0.4 10^3/uL (0.1-1.4); ABSOLUTE NEUT (AUTO) 3.4 10^3/uL (1.7-8.2); BASOPHILS % (AUTO) 0.7 % (0-2); EOSINOPHILS % (AUTO) 3.6 % (0-6); HEMATOCRIT 30.3 % (37.9-51.0); HEMOGLOBIN 10.2 g/dL (13.5-17.0); LYMPHOCYTES % (AUTO) 15.4 % (13-45); MEAN CORPUSCULAR HGB CONC 33.8 g/dL (32.0-36.0); MEAN CORPUSCULAR VOLUME 86 fl (80-97); MONOCYTES % (AUTO) 8.7 % (3-13); PLATELET COUNT 165 10^3/uL (150-450); RED BLOOD COUNT 3.54 10^6/uL (4.35-5.55); RED CELL DISTRIBUTION WIDTH 14.9 % (11.5-14.0); SEGMENTED NEUTROPHILS % (AUTO) 71.6 % (42-78); TOTAL CELLS COUNTED % (AUTO) 100 %; WHITE BLOOD COUNT 4.8 10^3/uL (4.0-10.5)
[2019-03-01 03:52] LABS: ALANINE AMINOTRANSFERASE 32 U/L (21-72); ALKALINE PHOSPHATASE 45 U/L (38-126); ANION GAP 8 (5-19); ASPARTATE AMINO TRANSFERASE 34 U/L (17-59); BILIRUBIN,DIRECT 0.3 mg/dL (0.0-0.4); BILIRUBIN,TOTAL 0.6 mg/dL (0.2-1.3); BLOOD UREA NITROGEN 26 mg/dL (7-20); CALCIUM 9.4 mg/dL (8.4-10.2); CARBON DIOXIDE 23 mmol/L (22-30); CHLORIDE 108 mmol/L (98-107); CHOLESTEROL 154.03 mg/dL (0-200); GLUCOSE 91 mg/dL (75-110); POTASSIUM 4.8 mmol/L (3.6-5.0); SODIUM 139.4 mmol/L (137-145); TOTAL PROTEIN 6.6 g/dL (6.3-8.2); TRIGLYCERIDES 96 mg/dL (<150)
[2019-03-01 04:03] LABS: DIRECT LDL 78 mg/dL (<100)
[2019-03-01 04:04] LABS: CREATINE KINASE MB 1.96 ng/mL (<4.55)
[2019-03-01 04:09] LABS: TROPONIN I < 0.012 ng/mL
[2019-03-01] MEDS: PANTOPRAZOLE SODIUM 40 MG TABLET.DR PO SCH ×2 (05:09→16:55)
--- NOTE | 2019-03-01 08:49 | RADIOLOGY REPORT (SQ) ---
EXAM DESCRIPTION: CHEST SINGLE VIEW COMPLETED DATE/TIME: 03/01/2019 7:53 am REASON FOR STUDY: DVT/LEGGING SWELLING (TO BE READ WITH VQ SCAN) COMPARISON: Chest films 08/14/2017 EXAM PARAMETERS: NUMBER OF VIEWS: One view. TECHNIQUE: Single frontal radiographic view of the chest acquired. RADIATION DOSE: NA LIMITATIONS: None. FINDINGS: LUNGS AND PLEURA: No opacities, masses or pneumothorax. No pleural effusion. MEDIASTINUM AND HILAR STRUCTURES: No masses. Contour normal. HEART AND VASCULAR STRUCTURES: Heart normal in size. Normal vasculature. BONES: Old healed left upper rib fractures HARDWARE: None in the chest. OTHER: No other significant finding. IMPRESSION: NO ACUTE RADIOGRAPHIC FINDING IN THE CHEST. TECHNICAL DOCUMENTATION: JOB ID: [id number] [employer]- All Rights Reserved Reading location - IP/workstation name: [email or web address]
--- NOTE | 2019-03-01 08:52 | RADIOLOGY REPORT (SQ) ---
EXAM DESCRIPTION: NM LUNG VENT/PERF SCAN COMPLETED DATE/TIME: 03/01/2019 8:31 am REASON FOR STUDY: DVT/LE SWELLING COMPARISON: Left lower extremity venous Doppler 02/28/2019 RADIONUCLIDE AND DOSE: 5.5 millicuries TC-99m MAA Intravenous 31 millicuries TC-99m DTPA Inhaled aerosol TECHNIQUE: Eight views of the lungs acquired post ventilation of DTPA aerosol. Eight matching views of the lungs acquired following injection of MAA. LIMITATIONS: None. FINDINGS: VENTILATION: Symmetric and homogeneous distribution of DTPA aerosol during ventilatory pha se. No significant areas of photopenia. PERFUSION: Perfusion images with normal homogenous activity and no wedge-shaped or segmental defects. No ventilation-perfusion mismatches. OTHER: No other significant finding. IMPRESSION: NORMAL VENTILATION-PERFUSION LUNG SCAN. NEGATIVE FOR PULMONARY EMBOLI. TECHNICAL DOCUMENTATION: JOB ID: [id number] [employer]- All Rights Reserved Reading location - IP/workstation name: [email or web address]
[2019-03-01] MEDS: TAMSULOSIN HCL 0.4 MG CAP.SR.24H PO SCH ×2 (10:13→21:22)
[2019-03-01] MEDS: FINASTERIDE 5 MG TABLET PO SCH (10:13)
[2019-03-01] MEDS: OXYCODONE HCL IR 5 MG TABLET PO PRN ×3 (10:13→23:31)
[2019-03-01] MEDS: RIVAROXABAN 15 MG TABLET PO SCH ×2 (10:15→17:01)
[2019-03-01] MEDS ORDERED: FENTANYL 50 MCG/HR PATCH.TD72 TD SCH (19:30)
[2019-03-02] MEDS: PANTOPRAZOLE SODIUM 40 MG TABLET.DR PO SCH (05:22)
[2019-03-02] MEDS: TAMSULOSIN HCL 0.4 MG CAP.SR.24H PO SCH (10:59)
[2019-03-02] MEDS: FINASTERIDE 5 MG TABLET PO SCH (10:59)
[2019-03-02] MEDS: RIVAROXABAN 15 MG TABLET PO SCH (10:59)
[2019-03-02] MEDS: OXYCODONE HCL IR 5 MG TABLET PO PRN (11:00)
[2019-03-02 13:12] VITALS: BP 123/68
--- NOTE | 2019-03-02 17:12 | PDOC PROGRESS REPORT ---
Subjective Progress Note for:: 03/01/19 Subjective:: Patient is resting comfortably. He remarks that the left leg swelling has gone down significantly. Reason For Visit: DVT Physical Exam Vital Signs: Temp Pulse Resp BP Pulse Ox 98.3 F 62 18 133/71 H 99 03/01/19 15:20 03/01/19 15:20 03/01/19 15:20 03/01/19 15:20 03/01/19 15:20 Intake & Output 02/28/19 03/01/19 03/02/19 06:59 06:59 06:59 Intake Total 200 360 Output Total 1725 Balance -1525 360 Weight 85 kg General appearance: PRESENT: no acute distress, cooperative, well-developed Respiratory exam: PRESENT: rales - Right base, symmetrical, unlabored. ABSENT: crackles, rhonchi, tachypnea, wheezes Cardiovascular exam: PRESENT: RRR, +S1, +S2 GI/Abdominal exam: PRESENT: normal bowel sounds, soft. ABSENT: distended, tend erness Rectal exam: PRESENT: deferred Gentrourinary exam: ABSENT: indwelling catheter Extremities exam: PRESENT: other - Left calf is back to normal size.. ABSENT: pedal edema Musculoskeletal exam: PRESENT: normal inspection Neurological exam: PRESENT: alert, awake, oriented to person, oriented to place, oriented to time, oriented to situation, CN II-XII grossly intact. ABSENT: motor sensory deficit Psychiatric exam: PRESENT: appropriate affect, normal mood. ABSENT: agitated, anxious Focused psych exam: ABSENT: delusional, restlessness Skin exam: ABSENT: erythema Results Laboratory Results: 03/01/19 03:27 03/01/19 03:27 03/01/19 03/01/19 03/01/19 03:27 03:27 03:27 WBC 4.8 RBC 3.54 L Hgb 10.2 L Hct 30.3 L MCV 86 MCH 29.0 MCHC 33.8 RDW 14.9 H Plt Count 165 Seg Neutrophils % 71.6 Lymphocytes % 15.4 Monocytes % 8.7 Eosinophils % 3.6 Basophils % 0.7 Absolute Neutrophils 3.4 Absolute Lymphocytes 0.7 Absolute Monocytes 0.4 Absolute Eosinophils 0.2 Absolute Basophils 0.0 Sodium 139.4 Potassium 4.8 Chloride 108 H Carbon Dioxide 23 Anion Gap 8 BUN 26 H Creatinine 2.10 H Est GFR ( Amer) 38 L Est GFR (Non-Af Amer) 31 L Glucose 91 Calcium 9.4 Magnesium 2.0 Total Bilirubin 0.6 AST 34 ALT 32 Alkaline Phosphatase 45 Total Protein 6.6 Albumin 4.0 Triglycerides 96 Cholesterol 154.03 LDL Cholesterol Direct 78 VLDL Cholesterol 19.0 HDL Cholesterol 53 TSH 2.21 02/28/19 02/28/19 02/28/19 10:40 10:40 21:34 Creatine Kinase 115 86 CK-MB (CK-2) 2.64 Troponin I < 0.012 02/28/19 03/01/19 03/01/19 21:34 03:27 03:27 Creatine Kinase 119 CK-MB (CK-2) 1.65 1.96 Troponin I < 0.012 < 0.012 Impressions: Venous Doppler Study 02/28/19 10:26 IMPRESSION: Generalize acute thrombus throughout the entire left deep venous system. Chest X-Ray 03/01/19 00:00 IMPRESSION: NO ACUTE RADIOGRAPHIC FINDING IN THE CHEST. Lung Scan-VQ NM 03/01/19 00:00 IMPRESSION: NORMAL VENTILATION-PERFUSION LUNG SCAN. NEGATIVE FOR PULMONARY EMBOLI. Assessment and Plan - Diagnosis (1) Acute deep vein thrombosis (DVT) of left lower extremity Qualifiers: Affected thrombotic vein of extremity: unspecified vein of extremity Qualified Code(s): I82.402 - Acute embolism and thrombosis of unspecified deep veins of left lower extremity Is this a current diagnosis for this admission?: Yes Plan: The patient was diagnosed with a deep venous thrombosis. I will start him on Xarelto. If he tolerates medicine consider discharge tomorrow. The swelling in fact has resolved and the patient reports feeling quite good. (2) Chronic renal disease Qualifiers: Chronic kidney disease stage: stage 3 (moderate) Qualified Code(s): N18.3 - Chronic kidney disease, stage 3 (moderate) Is this a current diagnosis for this admission?: Yes Plan: The patient appears to be at his baseline. We will continue to monitor his renal function. (3) Pain, neoplasm-related Is this a current diagnosis for this admission?: Yes Plan: The patient has chronic pain from his multiple myeloma. We will continue his fentanyl patch as well as his oral pain medications. (4) Prostatic hyperplasia, benign localized, with obstruction Is this a current diagnosis for this admission?: Yes Plan: With his history of BPH the patient requires finasteride and tamsulosin. We will continue these medications at this time. - Time Time Spent with patient: 15-24 minutes Medications reviewed and adjusted accordingly: Yes Anticipated discharge: Home Within: within 24 hours
--- NOTE | 2019-03-02 17:18 | PDOC DISCHARGE SUMMARY ---
General - Admit/Disc Date/PCP Admission Date/Primary Care Provider: 02/28/19 15:[facility] Discharge Date: 03/02/19 - Discharge Diagnosis (1) Acute deep vein thrombosis (DVT) of left lower extremity Is this a current diagnosis for this admission?: Yes Summary: The swelling resolved fairly quickly. The patient is tolerating Xarelto and so will be discharged on same. He will follow-up with his primary care physician. This will likely be a chronic medication with his history of malignancy since that does and risk of recurrence. (2) Chronic renal disease Is this a current diagnosis for this admission?: Yes Summary: Renal function has been stable during this hospitalization. He appears to be at stage III and no changes were noted. (3) Pain, neoplasm-related Is this a current diagnosis for this admission?: Yes Summary: He will continue the fentanyl patch and return to the as needed oral medications per his home regimen. (4) Prostatic hyperplasia, benign localized, with obstruction Is this a current diagnosis for this admission?: Yes Summary: Continue the finasteride and tamsulosin. There are no acute obstructive issues during this hospitalization. - Additional Information Resuscitation Status: Full Code Discharge Diet: Regular Discharge Activity: Activity As Tolerated, Balance Activity w/Rest Prescriptions: Rivaroxaban [Xarelto] 20 mg PO DAILY 30 Days #30 tablet Home Medications: Acetaminophen [Tylenol Extra Strength 500 mg Tablet] 500 mg PO Q6HP PRN 02/28/19 Cetirizine HCl [Zyrtec 10 mg Tablet] 10 mg PO DAILY 02/28/19 Cholecalciferol (Vitamin D3) [Vitamin D3 2000 unit Tablet] 2,000 unit PO DAILY 02/28/19 Fentanyl [Duragesic 50 Mcg/Hr Transdermal Patch] 1 each TD Q3D 02/28/19 Finasteride [Proscar 5 mg Tablet] 5 mg PO DAILY 02/28/19 Oxycodone HCl [Oxy-Ir 5 mg Tablet] 20 mg PO Q6HP PRN 02/28/19 Ranitidine HCl [Zantac 150 mg Tablet] 150 mg PO QHS 02/28/19 Sennosides/Docusate Sodium [Senna-S Tablet] 1 each PO DAILYP PRN 02/28/19 Tamsulosin HCl [Flomax 0.4 mg Cap.sr] 0.4 mg PO Q12 02/28/19 Valacyclovir HCl [Valtrex 500 mg Tablet] 500 mg PO DAILY 02/28/19 Acetaminophen [Tylenol 325 mg Tablet] 650 mg PO Q4HP PRN tablet 03/02/19 Fentanyl [Duragesic 50 Mcg/Hr Transdermal Patch] 1 each TD Q3D@1000 patch.td72 03/02/19 Finasteride [Proscar 5 mg Tablet] 5 mg PO DAILY tablet 03/02/19 Oxycodone HCl [Oxy-Ir 5 mg Tablet] 20 mg PO Q6HP PRN tablet 03/02/19 Rivaroxaban [Xarelto] 20 mg PO DAILY 30 Days #30 tablet 03/02/19 History of Present Illness Patient complains of: Left lower leg pain and swelling History of Present Illness: BRIDGER RITCHIE is a 73 year old male with a history of multiple myeloma (oncologist is Dr. Galindo) presented to the emergency department with left lower leg pain for several months and increased swelling. When at his pain management clinic appointment they referred him to the emergency department. He denies any difficulty breathing, shortness of breath, chest pain, pressure or palpita tions. Ultrasound revealed deep venous thrombosis in the left leg. He was referred to the hospital service for admission. Hospital Course Hospital Course: Patient had an unremarkable hospital course. We continued his pain management as well as his medications for his prostatic hyperplasia. He was initiated on Xarelto for the deep venous thrombosis and a prescription was forwarded to his pharmacy to continue the medication. He will follow-up with the [facility]. In addition Dr. Galindo can also follow for the DVT. The patient did discuss the consideration of finding a local primary care provider as opposed to ongoing use of the [facility]. Physical Exam Vital Signs: Temp Pulse Resp BP Pulse Ox 98.6 F 82 16 123/68 100 03/02/19 11:00 03/02/19 13:14 03/02/19 11:00 03/02/19 11:00 03/02/19 11:00 Intake & Output 03/01/19 03/02/19 03/03/19 06:59 06:59 06:59 Intake Total 200 1392 Output Total 1725 300 Balance -1525 1092 Weight 85 kg 82.1 kg General appearance: PRESENT: no acute distress, cooperative, well-developed Head exam: PRESENT: atraumatic, normocephalic Eye exam: PRESENT: conjunctiva pink, EOMI. ABSENT: scleral icterus Ear exam: PRESENT: normal external ear exam Mouth exam: PRESENT: moist, tongue midline Neck exam: PRESENT: full ROM. ABSENT: JVD, lymphadenopathy Respiratory exam: PRESENT: clear to auscultation misty, symmetrical, unlabored. ABSENT: accessory muscle use, rales, rhonchi, tachypnea, wheezes Cardiovascular exam: PRESENT: RRR, +S1, +S2 GI/Abdominal exam: PRESENT: normal bowel sounds, soft. ABSENT: distended, tenderness Rectal exam: ABSENT: deferred Gentrourinary exam: ABSENT: indwelling catheter Extremities exam: PRESENT: full ROM. ABSENT: joint swelling, pedal edema Musculoskeletal exam: PRESENT: ambulatory, normal inspection Neurological exam: PRESENT: alert, awake, oriented to person, oriented to place, oriented to time, oriented to situation, CN II-XII grossly intact. ABSENT: motor sensory deficit Psychiatric exam: PRESENT: appropriate affect, normal mood. ABSENT: agitated, anxious Focused psych exam: ABSENT: delusional, restlessness Skin exam: PRESENT: dry, normal color, warm. ABSENT: erythema Results Laboratory Results: 03/01/19 03:27 03/01/19 03:27 02/28/19 02/28/19 02/28/19 10:40 10:40 21:34 Creatine Kinase 115 86 CK-MB (CK-2) 2.64 Troponin I < 0.012 02/28/19 03/01/19 03/01/19 21:34 03:27 03:27 Creatine Kinase 119 CK-MB (CK-2) 1.65 1.96 Troponin I < 0.012 < 0.012 Impressions: Venous Doppler Study 02/28/19 10:26 IMPRESSION: Generalize acute thrombus throughout the entire left deep venous system. Chest X-Ray 03/01/19 00:00 IMPRESSION: NO ACUTE RADIOGRAPHIC FINDING IN THE CHEST. Lung Scan-VQ NM 03/01/19 00:00 IMPRESSION: NORMAL VENTILATION-PERFUSION LUNG SCAN. NEGATIVE FOR PULMONARY EMBOLI. Qualifiers - * PATIENT BEING DISCHARGED WITH ANY OF THE FOLLOWING DIAGNOSIS: VTE (PE or DVT) VTE patient discharged on overlapping Therapy?: No Reason(s) for not prescribing Overlap Therapy:: Not indicated Acute Heart Failure - Is this a Heart Failure Patient?: No Plan Discharge Plan: Follow-up as outlined above. Time Spent: Greater than 30 Minutes
== END 2019-03-02 14:07 | disposition home or self-care (01) | DRG 300 ==
LOC: ER 09:51 → EH 15:51 → 3W 20:00
PROVIDERS: ADMIT Internal Medicine; ATTEND Internal Medicine
DX: I82.402 Acute embolism and thrombosis of unspecified deep veins of left lower extremity (principal); C90.00 Multiple myeloma not having achieved remission; N13.8 Other obstructive and reflux uropathy; D64.9 Anemia, unspecified; I12.9 Hypertensive chronic kidney disease with stage 1 through stage 4 chronic kidney disease, or unspecified chronic kidney disease; N18.3 Chronic kidney disease, stage 3 (moderate); N40.1 Benign prostatic hyperplasia with lower urinary tract symptoms
CPT/HCPCS: 36415; 71045; 78582; 80053; 80061; 81001; 82550; 82553; 83036; 83735; 84443; 84484; 85025; 85610; 85730; 93971; A9540; A9567; J3490; Q9969

== ENCOUNTER → 2019-09-08 | Outpatient (CLI) | payer MEDICARE ==
--- NOTE | 2019-09-08 15:12 | RADIOLOGY REPORT (SQ) ---
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 TECHNIQUE: CT scan of the pelvis performed without intravenous or oral contrast. Images reviewed wi th soft tissue and bone windows. Reconstructed coronal and sagittal MPR images reviewed. All images stored on PACS. All CT scanners at this facility use dose modulation, iterative reconstruction, and/or weight based d osing when appropriate to reduce radiation dose to as low as reasonably achievable (ALARA). [facility]: Dose Right [facility]: CareDose [facility]: Dose Right [facility]: Teradose 4D [facility]: SmartCrowdz RADIATION DOSE: CT Rad equipment meets quality standard of care and radiation dose reduction techniq ues were employed. CTDIvol: 8.4 mGy. DLP: 271 mGy-cm. mGy. LIMITATIONS: None. FINDINGS: PELVIC BONES: Unchanged mixed sclerotic and lytic lesions especially to left of midline. No pathologic fracture. VISUALIZED SPINE: Mixed sclerotic lytic lesions. No pathologic fracture. HIP(S): Mixed sclerotic and lytic lesions. No pathologic fracture. PELVIC SOFT TISSUES: No significant findings. EXTRAPELVIC SOFT TISSUES: No significant findings. OTHER: No other significant finding. IMPRESSION: Known myeloma or metastatic disease. No evidence of pathologic fracture. TECHNICAL DOCUMENTATION: JOB ID: [id number] Quality ID # [id number]: Final reports with documentation of one or more dose reduction techniques (e.g., Au tomated exposure control, adjustment of the mA and/or kV according to patient size, use of iterative reconstruction technique) 2010 [employer]- All Rights Reserved Reading location - IP/workstation name: [email or web address]
== END ==
LOC: RAD 13:48
PROVIDERS: ATTEND Internal Medicine Hematology & Oncology
DX: C90.00 Multiple myeloma not having achieved remission (principal); C79.51 Secondary malignant neoplasm of bone; R10.2 Pelvic and perineal pain
CPT/HCPCS: 72192

== ENCOUNTER → 2019-11-21 | Outpatient (CLI) | payer MEDICARE ==
[2019-11-21 13:01] LABS: ABSOLUTE EOSINOPHILS # (AUTO) 0.2 10^3/uL (0.0-0.6); ABSOLUTE LYMPHOCYTES (AUTO) 0.4 10^3/uL (0.5-4.7); ABSOLUTE MONOCYTES (AUTO) 0.3 10^3/uL (0.1-1.4); ABSOLUTE NEUT (AUTO) 2.2 10^3/uL (1.7-8.2); BASOPHILS % (AUTO) 0.7 % (0-2); EOSINOPHILS % (AUTO) 4.9 % (0-6); HEMATOCRIT 29.5 % (37.9-51.0); HEMOGLOBIN 10.1 g/dL (13.5-17.0); LYMPHOCYTES % (AUTO) 13.5 % (13-45); MEAN CORPUSCULAR HGB CONC 34.3 g/dL (32.0-36.0); MEAN CORPUSCULAR VOLUME 82 fl (80-97); MONOCYTES % (AUTO) 9.7 % (3-13); PLATELET COUNT 154 10^3/uL (150-450); RED BLOOD COUNT 3.61 10^6/uL (4.35-5.55); SEGMENTED NEUTROPHILS % (AUTO) 71.2 % (42-78); TOTAL CELLS COUNTED % (AUTO) 100 %; WHITE BLOOD COUNT 3.1 10^3/uL (4.0-10.5)
[2019-11-21 13:13] LABS: ALBUMIN 3.9 g/dL (3.5-5.0); ALKALINE PHOSPHATASE 71 U/L (38-126); ANION GAP 8 (5-19); ASPARTATE AMINO TRANSFERASE 41 U/L (17-59); BILIRUBIN,TOTAL 0.4 mg/dL (0.2-1.3); BLOOD UREA NITROGEN 23 mg/dL (7-20); CALCIUM 9.4 mg/dL (8.4-10.2); CARBON DIOXIDE 26 mmol/L (22-30); CHLORIDE 104 mmol/L (98-107); GLUCOSE 97 mg/dL (75-110); POTASSIUM 4.2 mmol/L (3.6-5.0); TOTAL PROTEIN 7.2 g/dL (6.3-8.2)
[2019-11-22 12:36] LABS: FREE LAMBDA LIGHT CHAINS 28.7 mg/L (5.7-26.3)
[2019-11-22 12:38] LABS: KAPPA LAMBDA RATIO 5.61 (0.26-1.65)
== END ==
LOC: OD 11:27
PROVIDERS: ATTEND Internal Medicine Hematology & Oncology
DX: C90.00 Multiple myeloma not having achieved remission (principal)
CPT/HCPCS: 36415; 80053; 82232; 83883; 85025; 86320

== ENCOUNTER → 2019-12-23 | Outpatient (CLI) | payer MEDICARE ==
[~2019-12-23] MED LIST: TRIAMCINOLONE ACETONIDE INJ 40 MG/1 ML VIAL ONE
--- NOTE | 2019-12-23 15:37 | RADIOLOGY REPORT (SQ) ---
EXAM DESCRIPTION: BONE SURVEY COMPLETE IMAGES COMPLETED DATE/TIME: 12/23/2019 3:14 pm REASON FOR STUDY: C90.00 MULTIPLE MYELOMA NOT HAVING ACHIEVED REMISSION C90.00 MULTIPLE MYELOMA NOT HAVING ACHIEVED REMISSION COMPARISON: 12/18/2017 TECHNIQUE: Images of the axial and proximal appendicular skeleton are obtained, along with lateral s kull and frontal chest films. LIMITATIONS: None. FINDINGS: AP CHEST: No bony findings. Lungs are clear. LATERAL SKULL: Innumerable lytic lesions, similar to prior ill-defined lucent lesions. No acute bony abnormality. AP BOTH HUMERI: Multifocal lucent lesions, similar to prior TWO-VIEW LUMBAR SPINE: Multilevel degenerative change. Disc height loss and levoconvex curvature of the lumbar spine. Multilevel facet arthropathy. No new fracture. TWO-VIEW THORACIC SPINE: Stable lower thoracic compression deformity. Dextroconvex thoracic curvatur e. AP PELVIS: Stable lytic disease. No new lesions. AP BOTH FEMURS: Stable. Most conspicuous lytic lesion within the left midshaft femur. No new discre te lesions. OTHER: No other significant finding. IMPRESSION: Grossly stable multifocal lytic lesions without definitive progression. Stable thoracic compression deformities. TECHNICAL DOCUMENTATION: JOB ID: [id number] 2010 [email or web address]- All Rights Reserved Reading location - IP/workstation name: [email or web address]
== END ==
LOC: RAD 14:37
PROVIDERS: ATTEND Internal Medicine Hematology & Oncology
DX: C90.00 Multiple myeloma not having achieved remission (principal); C79.51 Secondary malignant neoplasm of bone; M47.896 Other spondylosis, lumbar region
CPT/HCPCS: 77075; J3301

== ENCOUNTER → 2020-01-13 | Outpatient (CLI) | payer MEDICARE | LOC: OD 14:37 | PROVIDERS: ATTEND Internal Medicine Hematology & Oncology | DX: C90.00 Multiple myeloma not having achieved remission (principal) | CPT/HCPCS: 36415; 86850; 86900; 86901 ==

== ENCOUNTER 2020-01-27 09:26 | Day surgery (SDC) | payer MEDICARE ==
[2020-01-24 08:57] LABS: HEMATOCRIT 31.7 % (37.9-51.0); HEMOGLOBIN 10.7 g/dL (13.5-17.0); MEAN CORPUSCULAR HEMOGLOBIN 27.3 pg (27.0-33.4); MEAN CORPUSCULAR HGB CONC 33.6 g/dL (32.0-36.0); MEAN CORPUSCULAR VOLUME 81 fl (80-97); PLATELET COUNT 147 10^3/uL (150-450); RED BLOOD COUNT 3.91 10^6/uL (4.35-5.55); RED CELL DISTRIBUTION WIDTH 14.5 % (11.5-14.0); WHITE BLOOD COUNT 3.8 10^3/uL (4.0-10.5)
[2020-01-24 09:15] LABS: ANION GAP 7 (5-19); BLOOD UREA NITROGEN 30 mg/dL (7-20); CALCIUM 9.8 mg/dL (8.4-10.2); CARBON DIOXIDE 28 mmol/L (22-30); CHLORIDE 104 mmol/L (98-107); GLUCOSE 103 mg/dL (75-110); POTASSIUM 4.8 mmol/L (3.6-5.0)
--- NOTE | 2020-01-24 19:36 | EKG REPORT ---
SEVERITY:- NORMAL ECG - SINUS RHYTHM : Confirmed by: Keyanna Mendenhall 24-Jan-2020 19:35:13
[~2020-01-27 09:26] MED LIST changes: +ACETAMINOPHEN 325 MG TABLET PO PRN; +DIPHENHYDRAMINE HCL 50 MG/ML VIAL IV PRN; +FENTANYL CITRATE INJ/PF 100 MCG/2 ML AMPUL IV PRN; +MEPERIDINE HCL/PF INJ 25 MG/1 ML DISP.SYRIN IV PRN; +PROMETHAZINE HCL INJ 25 MG/1 ML VIAL IV PRN; -TRIAMCINOLONE ACETONIDE INJ 40 MG/1 ML VIAL ONE; +VANCOMYCIN HCL 1,000 MG in DEXTROSE 5%-WATER 250 ML IV PRN
[2020-01-27] MEDS ORDERED: MIDAZOLAM 2 MG/2 ML INJ ONE (09:41)
[2020-01-27] MEDS ORDERED: PROPOFOL INJ 200 MG/20 ML VIAL IV ONE (09:41)
[2020-01-27] MEDS ORDERED: ONDANSETRON HCL INJ/PF 4 MG/2 ML SDV ONE (09:41)
[2020-01-27] MEDS ORDERED: FENTANYL CITRATE INJ/PF 100 MCG/2 ML AMPUL ONE (09:41)
[2020-01-27] MEDS ORDERED: LIDOCAINE 1% INJ-PF (10 MG/ML) 30 ML SDV ONE (09:43)
[2020-01-27] MEDS ORDERED: BUPIVACAINE HCL 0.25 % INJ/PF (2.5 MG/1 ML) 30 ML VIAL ONE (09:44)
[2020-01-27] MEDS ORDERED: ACETAMINOPHEN 325 MG TABLET PO ONE (09:50)
[2020-01-27] MEDS ORDERED: ACETAMINOPHEN 325 MG TABLET ONE (09:55)
[2020-01-27] MEDS ORDERED: OXYCODONE-ACETAMINOPHEN 5-325 MG TABLET PO PRN (10:59)
--- NOTE | 2020-01-27 11:01 | Discharge Summary ---
Discharge Summary (SDC) - Discharge Final Diagnosis: Multiple myeloma, phlebosclerosis Date of Surgery: 01/27/20 Discharge Date: 01/27/20 Condition: Stable Treatment or Instructions: Discharge home. Diet as tolerated. Activity: Nonstrenuous. Follow-up with [facility] as needed. Okay to shower starting Thursday. No hot tubs or swimming pools x2 weeks. Referrals: SANDEEP BURKETT PA-C [Primary Care Provider] - Discharge Diet: As Tolerated Respiratory Treatments at Home: Deep Breathing/Coughing, Incentive Spirometer Discharge Activity: Balance Activity w/Rest Home Care Assistance: None Needed Report the Following to Your Physician Immediately: Shortness of Breath, Nausea, Vomiting, Increase in Pain, Fever over 101 Degrees, Unusual Bleeding, Redness
--- NOTE | 2020-01-27 11:07 | Operative Report ---
Nonrecallable Operative Report DATE OF SURGERY: 01/27/20 PREOPERATIVE DIAGNOSIS: Multiple myeloma, phlebosclerosis POSTOPERATIVE DIAGNOSIS: Same as above OPERATION: 1. Ultrasound-guided central venous puncture. 2. Left internal jugular vein Mediport placement. SURGEON: CHIQUITA PATE ANESTHESIA: LMAC TISSUE REMOVED OR ALTERED: None COMPLICATIONS: None apparent ESTIMATED BLOOD LOSS: Minimal PROCEDURE: Drains/implants: Left internal jugular vein Mediport placement. Procedure in detail: After informed consent was obtained, the patient was brought to the operating room and laid in the Trendelenburg position. The area of the neck and chest were prepped and draped in normal sterile fashion. An ultrasound was used to identify the left internal jugular vein. It was compressible with normal flow. Under direct ultrasonic guidance, the left internal jugular vein was cannulated using the supplied access needle. Dark, nonpulsatile venous blood was returned in the syringe. The wire was then inserted into the vein easily. Picture documentation was obtained using both ultrasound as well as fluoroscopy. Once this was confirmed, a separate incision was created on the left chest wall to accommodate the Mediport hub. The catheter was tunneled from the Mediport hub insertion site to the needle insertion site. Once this was completed, the dilator and breakaway sheath were inserted over the wire. This was done under direct fluoroscopic guidance. The catheter was then inserted into the breakaway sheath. The breakaway sheath was cracked and pulled away, leaving the catheter within the superior vena cava. The catheter was pulled back to an appropriate level in the SVC. It was trimmed to length, and attached to the Mediport hub. The hub was then buried in the pocket, and sutured to the chest wall using 3-0 Vicryl suture. The catheter was then aspirated and flushed with heparinized saline. The subcutaneous tissues were then closed using 3-0 Vicryl suture in simple running fashion. The overlying skin was closed using 4-0 Vicryl rapide in running subcuticular fashion. A dressing was placed, and the procedure was concluded. All sponge, instrument, and needle counts were correct x2. Condition: Stable.
--- NOTE | 2020-01-27 11:33 | RADIOLOGY REPORT (SQ) ---
EXAM DESCRIPTION: CHEST SINGLE VIEW IMAGES COMPLETED DATE/TIME: 01/27/2020 11:20 am REASON FOR STUDY: c-line COMPARISON: None. EXAM PARAMETERS: NUMBER OF VIEWS: One view. TECHNIQUE: An AP view of the chest was obtained. RADIATION DOSE: NA LIMITATIONS: None. FINDINGS: LUNGS AND PLEURA: Pleural-based in the lateral inferior aspect of the right hemithorax. T here is no pneumothorax or pleural effusion. MEDIASTINUM AND HILAR STRUCTURES: No mediastinal or hilar contour abnormality. HEART AND VASCULAR STRUCTURES: The cardiac silhouette and pulmonary vasculature are within normal moralez its. BONES: No acute findings. HARDWARE: Status post placement of a left IJ approach single-lumen port ; the tip of the catheter pro jects within the SVC. OTHER: No other finding. IMPRESSION: 1. Interval placement of a left IJ approach single-lumen port. There is no postprocedur al pneumothorax. 2. Pleural-based mass in the lateral inferior aspect of the right hemithorax. TECHNICAL DOCUMENTATION: JOB ID: [id number] 2010 [employer]- All Rights Reserved Reading location - IP/workstation name: [email or web address]
[2020-01-27 12:50] VITALS: BP 126/71
--- NOTE | 2020-01-28 12:22 | RADIOLOGY REPORT (SQ) ---
EXAM DESCRIPTION: FLUORO/CV PLACEMENT IMAGES COMPLETED DATE/TIME: 01/27/2020 11:05 am REASON FOR STUDY: PORTACATH INSERTION LEFT SIDE C90.00 MULTIPLE MYELOMA NOT HAVING ACHIEVED REMISSI ON COMPARISON: None. FLUOROSCOPY TIME: 1.8 minutes 2 images saved to PACS. TECHNIQUE: Intra-operative images acquired during surgical procedure to evaluate progress. NUMBER OF IMAGES: 2 LIMITATIONS: None. FINDINGS: Patient undergoing port placement, please correlate with operative note. IMPRESSION: IMAGE(S) OBTAINED DURING PROCEDURE. COMMENT: Quality ID [id number]: Final reports for procedures using fluoroscopy that document radiation exp osure indices, or exposure time and number of fluorographic images (if radiation exposure indices are not available) Please consult full operative report of the attending physician for description of the procedure. TECHNICAL DOCUMENTATION: JOB ID: [id number] 2010 [employer]- All Rights Reserved Reading location - IP/workstation name: [email or web address]
== END 2020-01-27 14:20 | disposition home or self-care (01) ==
LOC: OROUT 09:26
PROVIDERS: ATTEND Surgery
DX: C90.00 Multiple myeloma not having achieved remission (principal); I87.8 Other specified disorders of veins; Z80.0 Family history of malignant neoplasm of digestive organs; Z88.5 Allergy status to narcotic agent; Z86.718 Personal history of other venous thrombosis and embolism; N40.0 Benign prostatic hyperplasia without lower urinary tract symptoms; D64.9 Anemia, unspecified; N18.9 Chronic kidney disease, unspecified; E78.00 Pure hypercholesterolemia, unspecified; Z79.899 Other long term (current) drug therapy; Z79.891 Long term (current) use of opiate analgesic; Z87.891 Personal history of nicotine dependence; Z03.818 Encounter for observation for suspected exposure to other biological agents ruled out
CPT/HCPCS: 93005; 36415; 85027; 80048; 71045; 77001; 93010; 36561; U0003; A9270; J2250; J3010; J3490; J2405; J7060; J2704; J3370; J1642; 532; 87635; C1788; Q9967